=== PATIENT | female | born 1945 | race Caucasian/White ===

== ENCOUNTER 2018-04-24 15:24 | Emergency (ER) | payer MEDICARE, OTHER ==
[2018-04-24] MEDS ORDERED: Nitrostat 0.4 MG (ED) SL ONE ×2 (15:30→15:43)
[2018-04-24] MEDS ORDERED: BABY ASPIRIN 81 MG CHEW PO ONE (15:30)
--- NOTE | 2018-04-24 15:30 | ERPHSYRPT ---
- History of Present Illness Time Seen by Provider: 04/24/18 15:30 Historian: patient Exam Limitations: no limitations Physician History: 72 y/o white female presents with cp. cp began today while pt ironing. no known cardiac hx. pt states pain is sharp and is located central substernal and radiates into back. pt has had some coughing issues over last 2 to 3 days and coughing worse today. pt denies abd pain and denies sig soa to me. Timing/Duration: today Activities at Onset: none Quality: sharpness Location: substernal, central Chest Pain Radiation: back Severity of Pain-Max: mild Severity of Pain-Current: mild Modifying Factors: Improves With: coughing Associated Symptoms: cough, No nausea, No vomiting, No palpitations, No heartburn, No abdominal pain, No shortness of breath, No hurts to breathe, No fever, No syncope, No dizziness Prior Chest Pain/Cardiac Workup: no prior chest pain, no prior cardiac workup, non-cardiac Nitro Today/Relief: no nitro taken today Aspirin Treatment Today: 81 mg x 1, provided at home (pt takes a baby asa daily. ) Allergies/Adverse Reactions: Sulfa (Sulfonamide Antibiotics) Adverse Reaction (Verified 04/24/18 15:38) Home Medications: Anastrozole [Arimidex] 1 mg PO DAILY 01/11/13 [History] Aspirin 81 gm Chew [Baby Aspirin 81 mg Chew] 81 mg PO DAILY 06/22/14 [ History] Hx Influenza Vaccination/Date Given: Yes (2013) Hx Pneumococcal Vaccination/Date Given: Yes (2011) - Review of Systems Constitutional: No Symptoms, No Fever Eyes: No Symptoms, No Eye Pain Ears, Nose, & Throat: No Symptoms, No Ear Pain Respiratory: Cough, No Dyspnea, No Dyspnea on Exertion (MEYER), No Stridor, No Wheezing Cardiac: Chest Pain, No Palpitations, No Syncope Abdominal/Gastrointestinal: No Symptoms, No Abdominal Pain, No Nausea, No Vomiting, No Diarrhea Genitourinary Symptoms: No Symptoms, No Dysuria, No Frequency, No Hematuria Musculoskeletal: No Symptoms Skin: No Symptoms Neurological: No Symptoms, No Dizziness Psychological: No Symptoms Endocrine: No Symptoms Hematologic/Lymphatic: No Symptoms Immunological/Allergic: No Symptoms All Other Systems: Reviewed and Negative - Past Medical History Pertinent Past Medical History: Yes Neurological History: No Pertinent History Cardiac History: No Pertinent History Respiratory History: No Pertinent History Endocrine Medical History: No Pertinent History Musculoskeletal History: No Pertinent History GI Medical History: No Pertinent History History: No Pertinent History Psycho-Social History: No Pertinent History Female Reproductive Disorders: Breast Cancer - Past Surgical History Past Surgical History: Yes Neuro Surgical History: No Pertinent History Cardiac: No Pertinent History Respiratory: No Pertinent History Gastrointestinal: No Pertinent History, Other Genitourinary: No Pertinent History Musculoskeletal: Orthopedic Surgery Female Surgical History: Section, Hysterectomy, Lumpectomy Other Surgical History: colonoscopy 5yrs ago, left breast lumpectomy and nodes excision 2011 - Social History Smoking Status: Never smoker Exposure to second hand smoke: No Drug Use: none Patient Lives Alone: No - Nursing Vital Signs Nursing Vital Signs: Initial Vital Signs Temperature 97.2 F 04/24/18 15:29 Pulse Rate 110 H 04/24/18 15:29 Respiratory Rate 16 04/24/18 15:29 Blood Pressure 180/90 04/24/18 15:29 O2 Sat by Pulse Oximetry 97 04/24/18 15:29 Pain Scale Pain Intensity 3 - Physical Exam General Appearance: mild distress, alert, anxiety Ears, Nose, Throat Exam: normal ENT inspection Neck Exam: normal inspection, non-tender, supple, full range of motion Respiratory Exam: normal breath sounds, chest tenderness, lungs clear, respiratory distress, airway intact Cardiovascular Exam: regular rate/rhythm, normal heart sounds, normal peripheral pulses Gastrointestinal/Abdomen Exam: soft, normal bowel sounds, No tenderness, No guarding, No rebound Pelvic Exam: not done Rectal Exam: not done Back Exam: normal inspection, normal range of motion, No CVA tenderness, No vertebral tenderness Extremity Exam: normal inspection, normal range of motion, pelvis stable Neurologic Exam: alert, oriented x 3, cooperative, stallion manager II-XII nml as tested, normal mood/affect Skin Exam: normal color, warm, dry Lymphatic Exam: No adenopathy SpO2 Interpretation: normal Oxygen Delivery: Room Air - Course Nursing assessment & vital signs reviewed: Yes EKG Interpreted by Me: RATE (110), Sinus Tach, NORMAL AXIS, NORMAL INTERVALS, NORMAL QRS Ordered Tests: Active Orders 24 hr Category Date Time Status Machine Operators STAT Care 04/24/18 15:31 Active EKG-ER Only STAT Care 04/24/18 15:30 Active IV Insertion STAT Care 04/24/18 15:30 Active Pulse Oximetry (ED) STAT Care 04/24/18 15:30 Active CHEST 1 VIEW (PORTABLE) Stat Exams 04/24/18 15:31 Completed CBC W DIFF Stat Lab 04/24/18 15:30 Completed CMP Stat Lab 04/24/18 15:30 Completed D-DIMER QUANTITATION Stat Lab 04/24/18 15:30 Completed Manual Differential NC Stat Lab 04/24/18 15:30 Completed NT PRO BNP Stat Lab 04/24/18 15:30 Completed PROTIME WITH INR Stat Lab 04/24/18 15:30 Completed TROPONIN Q3H Lab 04/24/18 15:30 Completed TROPONIN Q3H Lab 04/24/18 18:45 Ordered TROPONIN Q3H Lab 04/24/18 21:45 Ordered TROPONIN Q3H Lab 04/25/18 00:45 Ordered TROPONIN Q3H Lab 04/25/18 03:45 Ordered Medication Summary Discontinued Medications Generic Name Dose Route Start Last Admin Trade Name Freq PRN Reason Stop Dose Admin Aspirin 324 mg 04/24/18 15:30 04/24/18 15:44 Baby Aspirin 81 Mg Chew PO 04/24/18 15:31 243 mg STAT ONE Administration Aspirin Confirm 04/24/18 15:43 Baby Aspirin 81 Mg Chew Administered 04/24/18 15:44 Dose 324 mg .ROUTE .STK-MED ONE Nitroglycerin 0.4 mg 04/24/18 15:30 04/24/18 15:46 Nitrostat 0.4 Mg (Ed) SL 04/24/18 15:31 0.4 mg STAT ONE Administration Nitroglycerin Confirm 04/24/18 15:43 Nitrostat 0.4 Mg (Ed) Administered 04/24/18 15:44 Dose 0.4 mg SL .STK-MED ONE Ondansetron HCl 4 mg 04/24/18 15:32 04/24/18 15:46 Zofran 4 Mg/2 Ml Vial IV 04/24/18 15:33 4 mg STAT ONE Administration Ondansetron HCl Confirm 04/24/18 15:42 Zofran 4 Mg/2 Ml Vial Administered 04/24/18 15:43 Dose 4 mg .ROUTE .STK-MED ONE Lab/Rad Data: Laboratory Result Diagrams 04/24/18 15:30 04/24/18 15:30 Laboratory Results 04/24/18 04/24/18 04/24/18 Range/Units 15:30 15:30 15:30 WBC (4.0-10.5) K/mm3 RBC (4.1-5.4) M/mm3 Hgb (12.0-16.0) gm/dl Hct (35-47) % MCV (78-100) fl MCH (26-32) pg MCHC (32-36) g/dl RDW (11.5-14.0) % Plt Count (150-450) K/mm3 MPV (6-9.5) fl Absolute Granulocytes (1.4-6.9) PT 10.2 (9.95-12.35) SECONDS INR 0.88 (0.8-3.0) D-Dimer < 215 L (215-500) ng/mL Sodium 136 L (137-145) mmol/L Potassium 3.7 (3.5-5.1) mmol/L Chloride 100 (98-107) mmol/L Carbon Dioxide 25 (22-30) mmol/L Anion Gap 15.3 H (5-15) MEQ/L BUN 13 (7-17) mg/dL Creatinine 0.51 L (0.52-1.04) mg/dL Estimated GFR > 60.0 ML/MIN Glucose 141 H (74-106) mg/dL Calcium 9.7 (8.4-10.2) mg/dL Total Bilirubin 0.70 (0.2-1.3) mg/dL AST 24 (14-36) U/L ALT 14 (0-35) U/L Alkaline Phosphatase 39 (38-126) U/L Troponin I < 0.012 (0.000-0.034) ng/mL NT-Pro-B Natriuret Pep 370 (0-900) pg/mL Serum Total Protein 7.5 (6.3-8.2) g/dL Albumin 4.9 (3.5-5.0) g/dL 04/24/18 Range/Units 15:30 WBC 7.3 (4.0-10.5) K/mm3 RBC 4.13 (4.1-5.4) M/mm3 Hgb 13.6 (12.0-16.0) gm/dl Hct 40.7 (35-47) % MCV 98.5 (78-100) fl MCH 32.9 H (26-32) pg MCHC 33.4 (32-36) g/dl RDW 13.4 (11.5-14.0) % Plt Count 150 (150-450) K/mm3 MPV 9.5 (6-9.5) fl Absolute Granulocytes 6.68 (1.4-6.9) PT (9.95-12.35) SECONDS INR (0.8-3.0) D-Dimer (215-500) ng/mL Sodium (137-145) mmol/L Potassium (3.5-5.1) mmol/L Chloride (98-107) mmol/L Carbon Dioxide (22-30) mmol/L Anion Gap (5-15) MEQ/L BUN (7-17) mg/dL Creatinine (0.52-1.04) mg/dL Estimated GFR ML/MIN Glucose (74-106) mg/dL Calcium (8.4-10.2) mg/dL Total Bilirubin (0.2-1.3) mg/dL AST (14-36) U/L ALT (0-35) U/L Alkaline Phosphatase (38-126) U/L Troponin I (0.000-0.034) ng/mL NT-Pro-B Natriuret Pep (0-900) pg/mL Serum Total Protein (6.3-8.2) g/dL Albumin (3.5-5.0) g/dL - Progress Progress: re-examined Air Movement: good Progress Note: 04/24/18 17:39 pt said her cp is only when she moves. no soa. Blood Culture(s) Obtained: No Antibiotics given: No Counseled pt/family regarding: lab results, diagnosis, need for follow-up, rad results - Departure Time of Disposition: 17:41 Departure Disposition: Home Clinical Impression: Chest pain, Musculoskeletal pain Condition: Stable Critical Care Time: No Referrals: CLAY MAES [Primary Care Provider] - Additional Instructions: follow up with primary doctor for further management. Prescriptions: Cyclobenzaprine HCl [Flexeril] 10 mg PO TID PRN #12 tablet PRN Reason: Muscle Spasms Prednisone 10 mg [Deltasone 10 mg] 10 mg PO TID #12 tablet
[2018-04-24] MEDS ORDERED: Zofran 4 MG/2 ML VIAL IV ONE (15:32)
[2018-04-24] MEDS ORDERED: Zofran 4 MG/2 ML VIAL ONE (15:42)
[2018-04-24] MEDS ORDERED: BABY ASPIRIN 81 MG CHEW ONE (15:43)
--- NOTE | 2018-04-24 15:58 | XRAY ---
Exam: AP portable chest film from 04/24/2018. Comparison: Two-view chest from 04/05/2017. Indication: Chest pain, left arm pain, sweating, shortness of breath. Findings: The transverse heart size appears normal. Some atherosclerotic mass or calcification is seen within the aortic knob. The gianluca and mediastinal structures appear unremarkable. The lungs are adequately inflated. No air space infiltrates, vascular congestion, pneumothorax, or pleural fluid is seen. No acute osseous process is seen. Multiple EKG leads are seen in place. Impression: 1. No acute cardiopulmonary disease is seen.
[2018-04-24 16:01] LABS: Granulocyte Absolute (ANC) 6.68 (1.4-6.9); Hematocrit 40.7 % (35-47); Hemoglobin 13.6 gm/dl (12.0-16.0); Mean Cell Volume 98.5 fl (78-100); Mean Corpuscular Hemoglobin 32.9 pg (26-32); Mean Corpuscular Hgb Concent. 33.4 g/dl (32-36); Mean Platelet Volume 9.5 fl (6-9.5); Platelet Count 150 K/mm3 (150-450); Red Blood Count 4.13 M/mm3 (4.1-5.4); Red Cell Distribution Width 13.4 % (11.5-14.0); White Blood Count 7.3 K/mm3 (4.0-10.5)
[2018-04-24 16:09] LABS: INR 0.88 (0.8-3.0)
[2018-04-24 16:16] LABS: D-DIMER QUANTITATION < 215 ng/mL (215-500)
[2018-04-24 16:23] LABS: ALBUMIN 4.9 g/dL (3.5-5.0); ALKALINE PHOSPHATASE 39 U/L (38-126); ANION GAP 15.3 MEQ/L (5-15); BLOOD UREA NITROGEN 13 mg/dL (7-17); CHLORIDE 100 mmol/L (98-107); Calcium 9.7 mg/dL (8.4-10.2); Carbon Dioxide 25 mmol/L (22-30); Creatinine 1 0.51 mg/dL (0.52-1.04); Glucose 141 mg/dL (74-106); NT PRO BNP 370 pg/mL (0-900); Potassium 3.7 mmol/L (3.5-5.1); SGOT/AST 24 U/L (14-36); SGPT/ALT 14 U/L (0-35); SODIUM 136 mmol/L (137-145); Total Protein 7.5 g/dL (6.3-8.2)
[2018-04-24] MEDS ORDERED: NORCO 5/325 MG PO ONE (17:53)
[2018-04-24] MEDS ORDERED: NORCO 5/325 MG ONE (18:08)
[2018-04-24 18:11] VITALS: BP 153/88; PULSE 114; O2SAT 97
[2018-04-24 22:45] LABS: BAND 1 % (0.0-2.0); Lymphocytes 5 % (24-44); Monocyte 3 % (0.0-12.0); Neutrophils 91 % (36.0-66.0); Total Cells Counted 100
[2018-04-24 22:46] LABS: Platelet Estimate NORMAL (NORMAL)
== END 2018-04-24 18:52 | disposition home or self-care (01) ==
LOC: ED 15:24
DX: R07.9 Chest pain, unspecified (principal); M79.1 Myalgia; Z85.3 Personal history of malignant neoplasm of breast; F41.9 Anxiety disorder, unspecified; Z79.899 Other long term (current) drug therapy
CPT/HCPCS: 36000; 36415; 71045; 80053; 83880; 84484; 85025; 85379; 85610; 93005; 93041; 96374; 99284; J2405; A9270-GY

== ENCOUNTER 2019-11-18 10:02 | Emergency (ER) | payer MEDICARE, OTHER ==
--- NOTE | 2019-11-18 10:08 | ERPHSYRPT ---
- History of Present Illness Time Seen by Provider: 11/18/19 10:04 Source: patient Exam Limitations: no limitations Physician History: The patient is a 74-year-old female who presents with a chief complaint of a cough in addition to what she believes to be pinkeye involving the left eye. The patient reportedly has experienced a dry cough for the past 2 weeks. This is why she was traveling in [place] in addition to [place]. She reportedly was around her who was sick with pneumonia and admitted in [place] but there are no known Cobin 19 exposures and an to her knowledge her has not been diagnosed with covert 19. The patient is not a healthcare worker nor does she reside in an [facility] or appear to be critically ill at this time. She reportedly got off the plane last night and noticed that her left eye was starting to itch and become red while traveling via air. She is also noticed some purulent drainage coming from the left eye that started this morning. She denies deep boring pain involving the left eye, fever, chills, productive cough, shortness of breath, chest pain. She does have a history of breast cancer but reportedly is in remission and has been in remission for the past 4 to 5 years. 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 Associated Symptoms: cough, No nausea, No vomiting, No abdominal pain, No shortness of breath, No chills, No chest pain, No fever, No headaches, No rash Allergies/Adverse Reactions: Sulfa (Sulfonamide Antibiotics) Adverse Reaction (Verified 02/19/19 09:36) Home Medications: Aspirin 81 gm Chew [Baby Aspirin 81 mg Chew] 81 mg PO DAILY 06/22/14 [ History] Multivitamin [Multivitamins] 1 each PO DAILY 02/19/19 [History] lisinopriL [Lisinopril] 2.5 mg PO BID 11/18/19 [History] Hx Influenza Vaccination/Date Given: Yes (2013) Hx Pneumococcal Vaccination/Date Given: Yes (2011) - Review of Systems Constitutional: No Fever, No Chills Eyes: Eye Redness, Itchy Ears, Nose, & Throat: Nose Congestion, No Ear Pain, No Hoarse, No Painful Swallowing Respiratory: Cough Cardiac: No Chest Pain, No Edema, No Palpitations, No Syncope Abdominal/Gastrointestinal: No Symptoms, No Abdominal Pain, No Nausea, No Vomiting Genitourinary Symptoms: No No Symptoms Musculoskeletal: No No Symptoms Skin: No No Symptoms Neurological: No No Symptoms Psychological: No No Symptoms Endocrine: No No Symptoms Hematologic/Lymphatic: No No Symptoms Immunological/Allergic: No No Symptoms All Other Systems: Reviewed and Negative - Past Medical History Pertinent Past Medical History: Yes Neurological History: No Pertinent History ENT History: No Pertinent History Cardiac History: No Pertinent History Respiratory History: No Pertinent History Endocrine Medical History: No Pertinent History Musculoskeletal History: No Pertinent History, Osteoporosis GI Medical History: No Pertinent History History: No Pertinent History Psycho-Social History: No Pertinent History Female Reproductive Disorders: Breast Cancer - Past Surgical History Past Surgical History: Yes Neuro Surgical History: No Pertinent History Cardiac: No Pertinent History Respiratory: No Pertinent History Gastrointestinal: No Pertinent History, Other Genitourinary: No Pertinent History Musculoskeletal: Orthopedic Surgery Female Surgical History: Section, Hysterectomy, Lumpectomy Other Surgical History: colonoscopy 5yrs ago, left breast lumpectomy and nodes excision 2011. Ex/bx melanoma of nose - Social History Smoking Status: Never smoker Exposure to second hand smoke: No Drug Use: none Patient Lives Alone: No - Nursing Vital Signs Nursing Vital Signs: Initial Vital Signs Temperature 99.1 F 11/18/19 10:02 Pulse Rate 102 H 11/18/19 10:02 Respiratory Rate 22 11/18/19 10:02 Blood Pressure 178/94 11/18/19 10:02 O2 Sat by Pulse Oximetry 98 11/18/19 10:02 Pain Scale Pain Intensity 0 - Physical Exam General Appearance: no apparent distress Eye Exam: PERRL/EOMI, other (Left eye/specifically the conjunctive appear to be erythematous with some active purulent drainage consistent with what appears to be conjunctivitis. No proptosis, photophobia, changes in visual acuity, or signs of periorbital edema. There is no eye pain with ocular motion), No scleral icterus Ears, Nose, Throat Exam: normal ENT inspection, TMs normal, pharynx normal, moist mucous membranes, No TM abnormal (R), No TM abnormal (L), No pharyngeal erythema, No tonsillar exudate Neck Exam: normal inspection, non-tender, No supple Respiratory Exam: normal breath sounds, lungs clear, airway intact, No chest tenderness, No respiratory distress, No diminished breath sounds, No pleural rub Cardiovascular Exam: regular rate/rhythm, normal heart sounds, normal peripheral pulses, capillary refill <2 sec, No murmur, No friction rub, No gallop, No tachycardia, No edema Gastrointestinal/Abdomen Exam: soft Pelvic Exam: not done Rectal Exam: deferred Back Exam: normal inspection Extremity Exam: normal inspection Neurologic Exam: alert, oriented x 3, cooperative Skin Exam: normal color, warm, dry, No rash, No petechiae SpO2 Interpretation: normal - Course Nursing assessment & vital signs reviewed: Yes - Radiology Exams Chest X-ray Interpretation: Reviewed by me, Other (Radiology is reporting continued on acute hyperinflated chest.) Ordered Tests: Active Orders 24 hr Category Date Time Status PO Fluid Challenge STAT Care 11/18/19 10:18 Active CHEST 2 VIEWS (PA AND LAT) Stat Exams 11/18/19 10:17 Completed - Progress Progress: unchanged Progress Note: 11/18/19 16:12 Nontoxic in appearance. The patient is afebrile. Chest x-ray is ordered to evaluate for evidence of pneumonia or pleural effusion and was negative for such. Given the patient's duration of symptoms I do not feel the need to test for influenza at this time given it would not change my management since she was symptomatic for nearly 2 weeks and I would not prescribe antivirals given that her symptoms are well past the 48-hour window to do so. The patient also screened out for testing for COVID-19 the [facility] guidelines as of November 13, 2019. The patient appears to be clinically suffering from conjunctivitis affecting the left eye and had no evidence to suggest orbital cellulitis or periorbital cellulitis at this time. I suspect this may be viral however it is difficult to determine whether or not it is truly viral versus bacterial and I will go ahead and empirically cover with bacitracin ophthalmic ointment for treatment. I also informed the patient that her conjunctivitis may spread to her right eye and she then inform me that she is starting to feel some pruritus affecting the right eye but has no visible changes to the eyelid itself or conjunctive at this time there is strengthening my suspicion that her etiology is viral. In the meantime, she will be prescribed medications for symptomatic relief and instructed to follow-up with her primary care provider as needed. She was instructed to return to the emergency department if her symptoms became worse. She agreed with and verbally understood the discharge plan. Counseled pt/family regarding: lab results, diagnosis, need for follow-up, rad results - Departure Departure Disposition: Home Clinical Impression: Viral upper respiratory illness, Conjunctivitis Condition: Stable Critical Care Time: No Referrals: CLAY AMES [Primary Care Provider] - Instructions: Viral Upper Respiratory Infection, Adult (DC), Conjunctivitis ( Pinkeye), Cough, Adult (DC) Additional Instructions: Please take Tylenol/acetaminophen and/or ibuprofen as needed for any fever or pain, specifically or sore throat. Please continue to drink cool liquids and perform salt water gargles as needed for comfort. You can purchase acetaminophen/Tylenol as well as ibuprofen [id number]. Please take this medication as instructed on the bottle. Prescriptions: Benzonatate [Tessalon Perle] 100 mg PO [id number] PRN #30 capsule PRN Reason: Cough Bacitracin Opht 3.5 gm [Bacitracin EYE OINT] 3.5 gm OP TID 5 Days #1 tube
--- NOTE | 2019-11-18 11:00 | XRAY ---
Indication: Fever and cough. Comparison: April 24, 2018. AP/lateral chest remains hyperinflated and clear. Heart is not enlarged. Aorta remains arteriosclerotic. Bony thorax intact. No new/acute findings. Impression: Continued nonacute hyperinflated chest.
[2019-11-18 11:18] VITALS: BP 152/79; PULSE 96; O2SAT 96
== END 2019-11-18 11:42 | disposition home or self-care (01) ==
LOC: ED 10:02
DX: J06.9 Acute upper respiratory infection, unspecified (principal); H10.9 Unspecified conjunctivitis; M81.0 Age-related osteoporosis without current pathological fracture; Z85.3 Personal history of malignant neoplasm of breast
CPT/HCPCS: 71046; 99283

== ENCOUNTER 2019-12-29 20:26 | Observation (INO) | payer MEDICARE, OTHER ==
--- NOTE | 2019-12-29 20:46 | ERPHSYRPT ---
- History of Present Illness Time Seen by Provider: 12/29/19 20:55 Source: family, EMS Exam Limitations: no limitations Physician History: Patient is a 74yo F who presents to ED for evaluation of unresponsiveness. She was at home doing yardwork with her . She went into her home and sat down. returned minutes later and found patient unresponsive. called 911. Patient arrived unresponsive. GCS 9. Within minutes she regained consciousness. Patient denies pain. She complains of generalized weakness. No falls. NO trauma. No fevers. Timing/Duration: today Severity: moderate Character of Deficits: altered sensation Baseline/Normal Cognition: alert oriented x 3 Current Cognition: poor alertness Baseline Gait: walks w/o assistance Associated Symptoms: loss of consciousness, weakness, No fever, No nausea, No vomiting, No slurred speech Allergies/Adverse Reactions: Sulfa (Sulfonamide Antibiotics) Adverse Reaction (Verified 12/29/19 21:06) Home Medications: Aspirin 81 gm Chew [Baby Aspirin 81 mg Chew] 81 mg PO DAILY 06/22/14 [ History] lisinopriL [Lisinopril] 2.5 mg PO BID 11/18/19 [History] Hx Tetanus, Diphtheria Vaccination/Date Given: Yes Hx Influenza Vaccination/Date Given: Yes (2013) Hx Pneumococcal Vaccination/Date Given: Yes (2011) - Review of Systems Constitutional: No Symptoms, No Fever, No Chills Eyes: No Symptoms Ears, Nose, & Throat: No Symptoms Respiratory: No Symptoms, No Cough, No Dyspnea Cardiac: No Symptoms, No Chest Pain, No Edema, No Syncope Abdominal/Gastrointestinal: No Symptoms, No Abdominal Pain, No Nausea, No Vomiting, No Diarrhea Genitourinary Symptoms: No Symptoms, No Dysuria Musculoskeletal: No Symptoms, No Back Pain, No Neck Pain Skin: No Symptoms, No Rash Neurological: No Symptoms, No Dizziness, No Focal Weakness, No Sensory Changes Psychological: No Symptoms Endocrine: No Symptoms All Other Systems: Reviewed and Negative - Past Medical History Pertinent Past Medical History: Yes Neurological History: No Pertinent History ENT History: No Pertinent History Cardiac History: No Pertinent History Respiratory History: No Pertinent History Endocrine Medical History: No Pertinent History Musculoskeletal History: No Pertinent History, Osteoporosis GI Medical History: No Pertinent History History: No Pertinent History Psycho-Social History: No Pertinent History Female Reproductive Disorders: Breast Cancer - Past Surgical History Past Surgical History: Yes Neuro Surgical History: No Pertinent History Cardiac: No Pertinent History Respiratory: No Pertinent History Gastrointestinal: No Pertinent History, Other Genitourinary: No Pertinent History Musculoskeletal: Orthopedic Surgery Female Surgical History: Section, Hysterectomy, Lumpectomy Other Surgical History: colonoscopy 5yrs ago, left breast lumpectomy and nodes excision 2011. Ex/bx melanoma of nose - Social History Smoking Status: Never smoker Exposure to second hand smoke: No Drug Use: none Patient Lives Alone: No - Nursing Vital Signs Nursing Vital Signs: Initial Vital Signs Pulse Rate 81 12/29/19 20:50 Respiratory Rate 21 12/29/19 20:50 Blood Pressure 142/79 12/29/19 20:50 O2 Sat by Pulse Oximetry 99 12/29/19 20:50 Pain Scale Pain Intensity 0 - [place] Coma Scale Best Eye Response ([place]): (4) open spontaneously Best Verbal Response ([place]): (4) confused conversation Best Motor Response ([place]): (1) no motor response [place] Total: 9 - Physical Exam General Appearance: no apparent distress, alert Eye Exam: right eye: normal inspection (Left eye shows conjunctitivis. ), bilateral eye: PERRL, EOMI Ears, Nose, Throat Exam: normal ENT inspection, moist mucous membranes Neck Exam: normal inspection, non-tender, supple Respiratory: normal breath sounds, lungs clear, airway intact, No respiratory distress Cardiovascular: regular rate/rhythm, No edema Gastrointestinal: soft, No tenderness, No distention Back Exam: normal inspection Extremity Exam: normal inspection, No pedal edema Peripheral Pulses: femoral (R): 2+, femoral (L): 2+, dorsalis-pedis (R): 1+, dorsalis-pedis (L): 1+ Mental Status: alert, oriented x 3 mental health professional Exam: normal hearing, normal speech, tongue midline, No abnormal eye position, No abnormal gag reflex, No facial droop, No facial weakness Coordination/Gait: normal finger to nose, normal gait Motor/Sensory: no motor deficit, no sensory deficit Skin Exam: normal color, warm, dry, No rash SpO2 Interpretation: normal SpO2: 98 O2 Delivery: Room Air - Course Nursing assessment & vital signs reviewed: Yes EKG Interpreted by Me: RATE, Sinus Rhythm, NORMAL AXIS, NORMAL INTERVALS - Radiology Exams Chest X-ray Interpretation: Interpreted by me, Teleradiologist Report - CT Exams Head CT Interpretation: Tele-radiologist Report (atrophy, mild degenerative microischemia and 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 no acute findings) Ordered Tests: Active Orders 24 hr Category Date Time Status Interior Specialist STAT Care 12/29/19 20:31 Active EKG-ER Only STAT Care 12/29/19 20:30 Active [place] [Catheter-Dinosaur [place]] STAT Care 12/29/19 21:04 Active IV Insertion STAT Care 12/29/19 20:31 Active IV Insertion-2nd Peripheral STAT Care 12/29/19 20:54 Active Isolation, Initiate & Maintain Q12H Care 12/29/19 21:06 Active NPO (ED) STAT Care 12/29/19 20:31 Active Oxygen-ED Only Nasal Cannula 2 lpm Care 12/29/19 21:11 Active Pulse Oximetry (ED) STAT Care 12/29/19 20:30 Active CHEST 1 VIEW (PORTABLE) Stat Exams 12/29/19 20:31 Taken HEAD WITHOUT CONTRAST [CT] Stat Exams 12/29/19 20:29 Taken CBC W DIFF Stat Lab 12/29/19 20:45 Completed CMP Stat Lab 12/29/19 20:45 Completed TROPONIN Q3H Lab 12/29/19 20:45 Completed TROPONIN Q3H Lab 12/29/19 23:45 Ordered TROPONIN Q3H Lab 12/30/19 02:45 Ordered TROPONIN Q3H Lab 12/30/19 05:45 Ordered TROPONIN Q3H Lab 12/30/19 08:45 Ordered UA W/RFX UR CULTURE Stat Lab 12/29/19 20:45 Completed Urine Triage Profile Stat Lab 12/29/19 20:45 Completed Transfer Order Routine Transfer 12/29/19 Ordered Medication Summary Discontinued Medications Generic Name Dose Route Start Last Admin Trade Name Freq PRN Reason Stop Dose Admin Erythromycin 3.5 gm 12/29/19 22:02 12/29/19 22:07 Erythromycin 3.5 Gm Ophth. OP 12/29/19 22:03 3.5 gm STAT ONE Administration Erythromycin Confirm 12/29/19 22:06 Erythromycin 1 Gm Administered 12/29/19 22:07 Dose 1 gm .ROUTE .STK-MED ONE Lab/Rad Data: Laboratory Result Diagrams 12/29/19 20:45 12/29/19 20:45 Laboratory Results 12/29/19 12/29/19 12/29/19 Range/Units 20:45 20:45 20:45 WBC (4.0-10.5) K/mm3 RBC (4.1-5.4) M/mm3 Hgb (12.0-16.0) gm/dl Hct (35-47) % MCV (78-100) fl MCH (26-32) pg MCHC (32-36) g/dl RDW (11.5-14.0) % Plt Count (150-450) K/mm3 MPV (7.5-11.0) fl Gran % (36.0-66.0) % Eos # (Auto) (0-0.5) Absolute Lymphs (auto) (1.0-4.6) Absolute Monos (auto) (0.0-1.3) Lymphocytes % (24.0-44.0) % Monocytes % (0.0-12.0) % Eosinophils % (0.00-5.0) % Basophils % (0.0-0.4) % Absolute Granulocytes (1.4-6.9) Basophils # (0-0.4) Sodium (137-145) mmol/L Potassium (3.5-5.1) mmol/L Chloride (98-107) mmol/L Carbon Dioxide (22-30) mmol/L Anion Gap (5-15) MEQ/L BUN (7-17) mg/dL Creatinine (0.52-1.04) mg/dL Estimated GFR ML/MIN Glucose (74-106) mg/dL Calcium (8.4-10.2) mg/dL Total Bilirubin (0.2-1.3) mg/dL AST (14-36) U/L ALT (0-35) U/L Alkaline Phosphatase (38-126) U/L Troponin I < 0.012 (0.000-0.034) ng/mL Serum Total Protein (6.3-8.2) g/dL Albumin (3.5-5.0) g/dL Urine Color YELLOW (YELLOW) Urine Appearance CLEAR (CLEAR) Urine pH 6.0 (5-6) Ur Specific [place] 1.010 (1.005-1.025) Urine Protein NEGATIVE (Negative) Urine Ketones TRACE (NEGATIVE) Urine Blood SMALL (0-5) [place] Urine Nitrite NEGATIVE (NEGATIVE) Urine Bilirubin NEGATIVE (NEGATIVE) Urine Urobilinogen NEGATIVE (0-1) mg/dL Ur Leukocyte Esterase NEGATIVE (NEGATIVE) Urine WBC (Auto) NONE (0-5) /HPF Urine RBC (Auto) 3-5 (0-2) /HPF U Hyaline Cast (Auto) 6-10 (0-2) /LPF U Epithel Cells (Auto) NONE (FEW) /HPF Urine Bacteria (Auto) NONE (NEGATIVE) /HPF Urine Mucus (Auto) SLIGHT (NEGATIVE) /HPF Urine Culture Reflexed NO (NO) Urine Glucose NEGATIVE (NEGATIVE) mg/dL Urine Opiates Level NEGATIVE (NEGATIVE) Ur Methadone NEGATIVE (NEGATIVE) Urine Barbiturates NEGATIVE (NEGATIVE) Ur Phencyclidine (PCP) NEGATIVE (NEGATIVE) Urine Amphetamine NEGATIVE (NEGATIVE) U Benzodiazepine Level NEGATIVE (NEGATIVE) Urine Cocaine NEGATIVE (NEGATIVE) Urine Marijuana (THC) NEGATIVE (NEGATIVE) 12/29/19 12/29/19 Range/Units 20:45 20:45 WBC 5.4 (4.0-10.5) K/mm3 RBC 3.77 L (4.1-5.4) M/mm3 Hgb 12.1 (12.0-16.0) gm/dl Hct 37.0 (35-47) % MCV 98.1 (78-100) fl MCH 32.1 H (26-32) pg MCHC 32.7 (32-36) g/dl RDW 13.6 (11.5-14.0) % Plt Count 223 (150-450) K/mm3 MPV 8.8 (7.5-11.0) fl Gran % 60.7 (36.0-66.0) % Eos # (Auto) 0.12 (0-0.5) Absolute Lymphs (auto) 1.52 (1.0-4.6) Absolute Monos (auto) 0.48 (0.0-1.3) Lymphocytes % 27.9 (24.0-44.0) % Monocytes % 8.8 (0.0-12.0) % Eosinophils % 2.2 (0.00-5.0) % Basophils % 0.4 (0.0-0.4) % Absolute Granulocytes 3.30 (1.4-6.9) Basophils # 0.02 (0-0.4) Sodium 136 L (137-145) mmol/L Potassium 3.6 (3.5-5.1) mmol/L Chloride 100 (98-107) mmol/L Carbon Dioxide 22 (22-30) mmol/L Anion Gap 17.5 H (5-15) MEQ/L BUN 12 (7-17) mg/dL Creatinine 0.91 (0.52-1.04) mg/dL Estimated GFR > 60.0 ML/MIN Glucose 91 (74-106) mg/dL Calcium 9.1 (8.4-10.2) mg/dL Total Bilirubin 0.50 (0.2-1.3) mg/dL AST 29 (14-36) U/L ALT 13 (0-35) U/L Alkaline Phosphatase 42 (38-126) U/L Troponin I (0.000-0.034) ng/mL Serum Total Protein 6.9 (6.3-8.2) g/dL Albumin 4.2 (3.5-5.0) g/dL Urine Color (YELLOW) Urine Appearance (CLEAR) Urine pH (5-6) Ur Specific [place] (1.005-1.025) Urine Protein (Negative) Urine Ketones (NEGATIVE) Urine Blood (0-5) [place] Urine Nitrite (NEGATIVE) Urine Bilirubin (NEGATIVE) Urine Urobilinogen (0-1) mg/dL Ur Leukocyte Esterase (NEGATIVE) Urine WBC (Auto) (0-5) /HPF Urine RBC (Auto) (0-2) /HPF U Hyaline Cast (Auto) (0-2) /LPF U Epithel Cells (Auto) (FEW) /HPF Urine Bacteria (Auto) (NEGATIVE) /HPF Urine Mucus (Auto) (NEGATIVE) /HPF Urine Culture Reflexed (NO) Urine Glucose (NEGATIVE) mg/dL Urine Opiates Level (NEGATIVE) Ur Methadone (NEGATIVE) Urine Barbiturates (NEGATIVE) Ur Phencyclidine (PCP) (NEGATIVE) Urine Amphetamine (NEGATIVE) U Benzodiazepine Level (NEGATIVE) Urine Cocaine (NEGATIVE) Urine Marijuana (THC) (NEGATIVE) - Progress Progress: improved Progress Note: 12/29/19 21:41 Patient reassessed. She is now A&Ox2. She is answering questions appropriately. NO focal or lateralizing symptoms. No slurred speech. Patient recalls her husbands name, hears of marriage. 12/29/19 22:[address] Albert who accepts consult. Patient is not a candidate for TPA due to rapid resolution of symptoms and normal neuro exam. 12/29/19 22:05 Discussed with .: Conrad Will see patient in: hospital (observation) Counseled pt/family regarding: lab results, diagnosis, need for follow-up, rad results - Departure Departure Disposition: Observation Clinical Impression: TIA (transient ischemic attack), Syncope, High anion gap metabolic acidosis, Conjunctivitis Condition: Stable Critical Care Time: Yes Critical Care Time(excluding separately billable procedures): Critical 30-74 mins Referrals: CLAY ALBERT [Primary Care Provider] -
[2019-12-29 20:53] LABS: BASOPHIL % 0.4 % (0.0-0.4); Basophil (Absolute #) 0.02 (0-0.4); Eosinophil % 2.2 % (0.00-5.0); Eosinophil (Absolute #) 0.12 (0-0.5); Hemoglobin 12.1 gm/dl (12.0-16.0); Lymphocyte (Absolute #) 1.52 (1.0-4.6); Lymphocytes % 27.9 % (24.0-44.0); Mean Cell Volume 98.1 fl (78-100); Mean Corpuscular Hemoglobin 32.1 pg (26-32); Mean Corpuscular Hgb Concent. 32.7 g/dl (32-36); Mean Platelet Volume 8.8 fl (7.5-11.0); Monocyte (Absolute #) 0.48 (0.0-1.3); Monocytes % 8.8 % (0.0-12.0); Neutrophil % 60.7 % (36.0-66.0); Platelet Count 223 K/mm3 (150-450); Red Blood Count 3.77 M/mm3 (4.1-5.4); Red Cell Distribution Width 13.6 % (11.5-14.0); White Blood Count 5.4 K/mm3 (4.0-10.5)
[2019-12-29 21:03] LABS: ALBUMIN 4.2 g/dL (3.5-5.0); ALKALINE PHOSPHATASE 42 U/L (38-126); ANION GAP 17.5 MEQ/L (5-15); BLOOD UREA NITROGEN 12 mg/dL (7-17); CHLORIDE 100 mmol/L (98-107); Calcium 9.1 mg/dL (8.4-10.2); Carbon Dioxide 22 mmol/L (22-30); Creatinine 1 0.91 mg/dL (0.52-1.04); Glucose 91 mg/dL (74-106); Potassium 3.6 mmol/L (3.5-5.1); SGOT/AST 29 U/L (14-36); SGPT/ALT 13 U/L (0-35); SODIUM 136 mmol/L (137-145); Total Protein 6.9 g/dL (6.3-8.2)
[2019-12-29 21:08] LABS: Appearance CLEAR (CLEAR); Bilirubin NEGATIVE (NEGATIVE); Blood SMALL Ery/ul (0-5); Glucose NEGATIVE (NEGATIVE); Ketones TRACE (NEGATIVE); Leukocyte Esterase NEGATIVE (NEGATIVE); Mucus SLIGHT /HPF (NEGATIVE); Nitrite NEGATIVE (NEGATIVE); Protein,Urine Dip NEGATIVE (Negative); Urobilinogen NEGATIVE mg/dL (0-1)
[2019-12-29 21:17] LABS: Amphetamine,Urine NEGATIVE (NEGATIVE); Barbiturate,Urine NEGATIVE (NEGATIVE); Benzodiazepine,Urine NEGATIVE (NEGATIVE); Cocaine,Urine NEGATIVE (NEGATIVE); Methadone,Urine NEGATIVE (NEGATIVE); Opiate,Urine NEGATIVE (NEGATIVE); PCP,Urine NEGATIVE (NEGATIVE); THC,Urine NEGATIVE (NEGATIVE)
[2019-12-29] MEDS ORDERED: Erythromycin 3.5 GM OPHTH. OP ONE (22:02)
[2019-12-29] MEDS ORDERED: Erythromycin 1 GM ONE (22:06)
[2019-12-30 06:48] LABS: Absolute Neutrophil Ct (ANC) 2.29 (1.4-6.9); BASOPHIL % 0.5 % (0.0-0.4); Basophil (Absolute #) 0.02 (0-0.4); Eosinophil % 2.6 % (0.00-5.0); Hematocrit 35.4 % (35-47); Hemoglobin 11.4 gm/dl (12.0-16.0); Lymphocyte (Absolute #) 1.04 (1.0-4.6); Lymphocytes % 27.3 % (24.0-44.0); Mean Cell Volume 97.8 fl (78-100); Mean Corpuscular Hemoglobin 31.5 pg (26-32); Mean Corpuscular Hgb Concent. 32.2 g/dl (32-36); Mean Platelet Volume 9.2 fl (7.5-11.0); Monocyte (Absolute #) 0.36 (0.0-1.3); Monocytes % 9.4 % (0.0-12.0); Neutrophil % 60.2 % (36.0-66.0); Platelet Count 216 K/mm3 (150-450); Red Blood Count 3.62 M/mm3 (4.1-5.4); Red Cell Distribution Width 13.6 % (11.5-14.0); White Blood Count 3.8 K/mm3 (4.0-10.5)
--- NOTE | 2019-12-30 08:46 | XRAY ---
Indication: Acute mental status change. Aspiration. Unresponsive. Comparison: November 18, 2019. Portable chest demonstrates minimal right base subsegmental atelectasis/scarring. Remaining heart and lungs unremarkable. Bony thorax intact.
--- NOTE | 2019-12-30 08:47 | XRAY ---
Indication: Acute mental status change. Unresponsive. Hypertension. Multiple contiguous axial images obtained through the head without contrast. Comparison: None There is diffuse global atrophy within normal limits for patient's age. Mild periventricular degenerative micro-ischemia bilaterally. Left external capsule demonstrates remote lacunar infarct. No acute intracranial hemorrhage, abnormal extra-axial fluid collection, or mass effect. Fourth ventricle is midline without hydrocephalus. Bony calvarium intact. Visualized paranasal sinuses and mastoid air cells are clear. Impression: 1. Normal aging brain including atrophy and degenerative micro-ischemia. 2. Left external capsule remote lacunar infarct. 3. No acute intracranial abnormalities. Comment: Follow-up CT or MRI may yield further information if there remains clinical concern.
--- NOTE | 2019-12-30 08:59 | PCM.SSS ---
History of Present Illness - Chief Complaint Chief Complaint: TIA History of Present Illness: is a 74 year old female pt of mine from [facility] with HTN and osteoporosis, hx of melanoma and breast ca, who was admitted through ER after being found unresponsive at home. She remembers standing in the kitchen feeling nauseated, went to get a trashcan and then doesn't remember anything until she was in the ER. She is feeling well this morning, no complaints. CT head and CXR were nonacute in ER. She came to see me last week c/o dizziness, worse with turning her head and raising up from being bent over. Orthostats were fine. Echocardiogram, carotid dopplers, and Holter monitor x 24h were done; carotid doppler report is nonacute, echo and Holter reports are pending. Her labs have been nonacute; her troponins neg x 4. Urine drug screen and UA neg. I am adding a TSH today as it was last checked in 2019. Will check MRI brain as well. Will send pt home after today's testing as she is feeling well. Will have her f /u with [facility]. - Review of Systems Respiratory: Cough ("just the normal"), Short Of Breath (little bit, she attributes to not exercising as normal) Cardiac: Syncope Abdominal/Gastrointestinal: Nausea, Diarrhea (off and on; chronic) Musculoskeletal: Arthralgias (bilat ankles, since her leg surgery with Dr. Crespo) Neurological: Dizziness Psychological: Depression (situational; her son 4mo ago.) All Other Systems: Reviewed and Negative Medications & Allergies Home Medications: Home Medication List Aspirin 81 gm Chew [Baby Aspirin 81 mg Chew] 81 mg PO DAILY 06/22/14 [ History Confirmed 12/29/19] lisinopriL [Lisinopril] 2.5 mg PO DAILY 11/18/19 [History Confirmed 12/29/19] Allergies/Adverse Reactions: Allergies Allergy/AdvReac Type Severity Reaction Status Date / Time Sulfa (Sulfonamide Allergy Intermediate Swelling Verified 12/29/19 23:19 Antibiotics) of Eyelids - Past Medical History Past Medical History: Yes Neurological History: No Pertinent History ENT History: No Pertinent History Cardiac History: Hypertension Respiratory History: No Pertinent History Endocrine Medical History: No Pertinent History Musculoskelatal History: Osteoporosis GI Medical History: No Pertinent History History: No Pertinent History Pyscho-Social History: No Pertinent History Reproductive Disorders: Breast Cancer Comment: MELANOMA - Female History Hx Last Menstrual Period: postmenapause Are you now?: No - Past Surgical History Past Surgical History: Yes Neuro Surgical History: No Pertinent History Cardiac History: No Pertinent History Respiratory Surgery: No Pertinent History GI Surgical History: Other Genitourinary Surgical Hx: No Pertinent History Musculskeletal Surgical Hx: Orthopedic Surgery Female Surgical History: Section, Hysterectomy, Lumpectomy Other Surgical History: colonoscopy 5yrs ago, left breast lumpectomy and nodes excision 2011. Ex/bx melanoma of nose. TAILBONE REMOVED - Social History Smoking Status: Never smoker Exposure to second hand smoke: No Alcohol: Daily Drug Use: none - Physical Exam Vital Signs: Vital Signs - 24 hr Temp Pulse Resp BP BP Pulse Ox 12/30/19 08:00 14 12/30/19 07:34 98.2 F 93 H 13 137/65 99 12/30/19 07:06 98 12/30/19 04:00 98.4 F 90 16 134/65 100 12/30/19 00:00 98.1 F 88 16 118/62 99 12/29/19 23:00 100 12/29/19 22:48 97.5 F 93 H 14 129/78 100 12/29/19 22:38 97.5 F 93 H 14 129/78 100 12/29/19 22:24 100 12/29/19 22:10 98 12/29/19 22:03 97.0 F 88 16 109/60 99 12/29/19 21:16 96.3 F 12/29/19 21:10 97.0 F 88 16 113/62 99 12/29/19 20:50 81 21 142/79 100 Oxygen-Last 24 hours Oxygen Flowrate (L/min)-RT 2 General Appearance: no apparent distress, alert Neurologic Exam: oriented x 3, cooperative, matrix worker II-XII nml as tested, other ( manager garage 5/5 bilat) Eye Exam: PERRL/EOMI, eyes nml inspection Ears, Nose, Throat Exam: pharynx normal, moist mucous membranes Neck Exam: normal inspection, non-tender, No lymphadenopathy Respiratory Exam: normal breath sounds, lungs clear, No crackles/rales, No rhonchi, No wheezing Cardiovascular Exam: regular rate/rhythm, normal heart sounds, No murmur Gastrointestinal/Abdomen Exam: soft, normal bowel sounds, No tenderness, No distention, No mass, No guarding, No rebound Back Exam: normal inspection, No rash Extremity Exam: normal inspection, No pedal edema, No swelling Skin Exam: normal color, warm, dry, No rash Results - Labs Lab/Micro Results: Lab Results-Last 24 Hours 12/29/19 12/29/19 12/29/19 Range/Units 20:45 20:45 20:45 WBC 5.4 (4.0-10.5) K/mm3 RBC 3.77 L (4.1-5.4) M/mm3 Hgb 12.1 (12.0-16.0) gm/dl Hct 37.0 (35-47) % MCV 98.1 (78-100) fl MCH 32.1 H (26-32) pg MCHC 32.7 (32-36) g/dl RDW 13.6 (11.5-14.0) % Plt Count 223 (150-450) K/mm3 MPV 8.8 (7.5-11.0) fl Gran % 60.7 (36.0-66.0) % Eos # (Auto) 0.12 (0-0.5) Absolute Lymphs (auto) 1.52 (1.0-4.6) Absolute Monos (auto) 0.48 (0.0-1.3) Lymphocytes % 27.9 (24.0-44.0) % Monocytes % 8.8 (0.0-12.0) % Eosinophils % 2.2 (0.00-5.0) % Basophils % 0.4 (0.0-0.4) % Absolute Granulocytes 3.30 (1.4-6.9) Basophils # 0.02 (0-0.4) Sodium 136 L (137-145) mmol/L Potassium 3.6 (3.5-5.1) mmol/L Chloride 100 (98-107) mmol/L Carbon Dioxide 22 (22-30) mmol/L Anion Gap 17.5 H (5-15) MEQ/L BUN 12 (7-17) mg/dL Creatinine 0.91 (0.52-1.04) mg/dL Estimated GFR > 60.0 ML/MIN Glucose 91 (74-106) mg/dL Calcium 9.1 (8.4-10.2) mg/dL Total Bilirubin 0.50 (0.2-1.3) mg/dL AST 29 (14-36) U/L ALT 13 (0-35) U/L Alkaline Phosphatase 42 (38-126) U/L Troponin I < 0.012 (0.000-0.034) ng/mL Serum Total Protein 6.9 (6.3-8.2) g/dL Albumin 4.2 (3.5-5.0) g/dL Urine Color (YELLOW) Urine Appearance (CLEAR) Urine pH (5-6) Ur Specific [place] (1.005-1.025) Urine Protein (Negative) Urine Ketones (NEGATIVE) Urine Blood (0-5) Costa/ul Urine Nitrite (NEGATIVE) Urine Bilirubin (NEGATIVE) Urine Urobilinogen (0-1) mg/dL Ur Leukocyte Esterase (NEGATIVE) Urine WBC (Auto) (0-5) /HPF Urine RBC (Auto) (0-2) /HPF U Hyaline Cast (Auto) (0-2) /LPF U Epithel Cells (Auto) (FEW) /HPF Urine Bacteria (Auto) (NEGATIVE) /HPF Urine Mucus (Auto) (NEGATIVE) /HPF Urine Culture Reflexed (NO) Urine Glucose (NEGATIVE) mg/dL Urine Opiates Level (NEGATIVE) Ur Methadone (NEGATIVE) Urine Barbiturates (NEGATIVE) Ur Phencyclidine (PCP) (NEGATIVE) Urine Amphetamine (NEGATIVE) U Benzodiazepine Level (NEGATIVE) Urine Cocaine (NEGATIVE) Urine Marijuana (THC) (NEGATIVE) 12/29/19 12/29/19 12/29/19 Range/Units 20:45 20:45 23:47 WBC (4.0-10.5) K/mm3 RBC (4.1-5.4) M/mm3 Hgb (12.0-16.0) gm/dl Hct (35-47) % MCV (78-100) fl MCH (26-32) pg MCHC (32-36) g/dl RDW (11.5-14.0) % Plt Count (150-450) K/mm3 MPV (7.5-11.0) fl Gran % (36.0-66.0) % Eos # (Auto) (0-0.5) Absolute Lymphs (auto) (1.0-4.6) Absolute Monos (auto) (0.0-1.3) Lymphocytes % (24.0-44.0) % Monocytes % (0.0-12.0) % Eosinophils % (0.00-5.0) % Basophils % (0.0-0.4) % Absolute Granulocytes (1.4-6.9) Basophils # (0-0.4) Sodium (137-145) mmol/L Potassium (3.5-5.1) mmol/L Chloride (98-107) mmol/L Carbon Dioxide (22-30) mmol/L Anion Gap (5-15) MEQ/L BUN (7-17) mg/dL Creatinine (0.52-1.04) mg/dL Estimated GFR ML/MIN Glucose (74-106) mg/dL Calcium (8.4-10.2) mg/dL Total Bilirubin (0.2-1.3) mg/dL AST (14-36) U/L ALT (0-35) U/L Alkaline Phosphatase (38-126) U/L Troponin I < 0.012 (0.000-0.034) ng/mL Serum Total Protein (6.3-8.2) g/dL Albumin (3.5-5.0) g/dL Urine Color YELLOW (YELLOW) Urine Appearance CLEAR (CLEAR) Urine pH 6.0 (5-6) Ur Specific [place] 1.010 (1.005-1.025) Urine Protein NEGATIVE (Negative) Urine Ketones TRACE (NEGATIVE) Urine Blood SMALL (0-5) Costa/ul Urine Nitrite NEGATIVE (NEGATIVE) Urine Bilirubin NEGATIVE (NEGATIVE) Urine Urobilinogen NEGATIVE (0-1) mg/dL Ur Leukocyte Esterase NEGATIVE (NEGATIVE) Urine WBC (Auto) NONE (0-5) /HPF Urine RBC (Auto) 3-5 (0-2) /HPF U Hyaline Cast (Auto) 6-10 (0-2) /LPF U Epithel Cells (Auto) NONE (FEW) /HPF Urine Bacteria (Auto) NONE (NEGATIVE) /HPF Urine Mucus (Auto) SLIGHT (NEGATIVE) /HPF Urine Culture Reflexed NO (NO) Urine Glucose NEGATIVE (NEGATIVE) mg/dL Urine Opiates Level NEGATIVE (NEGATIVE) Ur Methadone NEGATIVE (NEGATIVE) Urine Barbiturates NEGATIVE (NEGATIVE) Ur Phencyclidine (PCP) NEGATIVE (NEGATIVE) Urine Amphetamine NEGATIVE (NEGATIVE) U Benzodiazepine Level NEGATIVE (NEGATIVE) Urine Cocaine NEGATIVE (NEGATIVE) Urine Marijuana (THC) NEGATIVE (NEGATIVE) 12/30/19 12/30/19 12/30/19 Range/Units 02:50 06:00 06:00 WBC 3.8 L (4.0-10.5) K/mm3 RBC 3.62 L (4.1-5.4) M/mm3 Hgb 11.4 L (12.0-16.0) gm/dl Hct 35.4 (35-47) % MCV 97.8 (78-100) fl MCH 31.5 (26-32) pg MCHC 32.2 (32-36) g/dl RDW 13.6 (11.5-14.0) % Plt Count 216 (150-450) K/mm3 MPV 9.2 (7.5-11.0) fl Gran % 60.2 (36.0-66.0) % Eos # (Auto) 0.10 (0-0.5) Absolute Lymphs (auto) 1.04 (1.0-4.6) Absolute Monos (auto) 0.36 (0.0-1.3) Lymphocytes % 27.3 (24.0-44.0) % Monocytes % 9.4 (0.0-12.0) % Eosinophils % 2.6 (0.00-5.0) % Basophils % 0.5 (0.0-0.4) % Absolute Granulocytes 2.29 (1.4-6.9) Basophils # 0.02 (0-0.4) Sodium (137-145) mmol/L Potassium (3.5-5.1) mmol/L Chloride (98-107) mmol/L Carbon Dioxide (22-30) mmol/L Anion Gap (5-15) MEQ/L BUN (7-17) mg/dL Creatinine (0.52-1.04) mg/dL Estimated GFR ML/MIN Glucose (74-106) mg/dL Calcium (8.4-10.2) mg/dL Total Bilirubin (0.2-1.3) mg/dL AST (14-36) U/L ALT (0-35) U/L Alkaline Phosphatase (38-126) U/L Troponin I < 0.012 < 0.012 (0.000-0.034) ng/mL Serum Total Protein (6.3-8.2) g/dL Albumin (3.5-5.0) g/dL Urine Color (YELLOW) Urine Appearance (CLEAR) Urine pH (5-6) Ur Specific [place] (1.005-1.025) Urine Protein (Negative) Urine Ketones (NEGATIVE) Urine Blood (0-5) Costa/ul Urine Nitrite (NEGATIVE) Urine Bilirubin (NEGATIVE) Urine Urobilinogen (0-1) mg/dL Ur Leukocyte Esterase (NEGATIVE) Urine WBC (Auto) (0-5) /HPF Urine RBC (Auto) (0-2) /HPF U Hyaline Cast (Auto) (0-2) /LPF U Epithel Cells (Auto) (FEW) /HPF Urine Bacteria (Auto) (NEGATIVE) /HPF Urine Mucus (Auto) (NEGATIVE) /HPF Urine Culture Reflexed (NO) Urine Glucose (NEGATIVE) mg/dL Urine Opiates Level (NEGATIVE) Ur Methadone (NEGATIVE) Urine Barbiturates (NEGATIVE) Ur Phencyclidine (PCP) (NEGATIVE) Urine Amphetamine (NEGATIVE) U Benzodiazepine Level (NEGATIVE) Urine Cocaine (NEGATIVE) Urine Marijuana (THC) (NEGATIVE) - Radiology Impressions Radiology Exams & Impressions: Radiology Procedures Category Date Time Status CHEST 1 VIEW (PORTABLE) Stat Exams 12/29/19 20:31 Completed HEAD WITHOUT CONTRAST [CT] Stat Exams 12/29/19 20:29 Completed - Other Procedures and Tests Respiratory Therapy 12/29/19 22:59 Oxygen Nasal Cannula 2 lpm Assessment/Plan (1) Syncope Current Visit: Yes Status: Acute Assessment & Plan: Do MRI brain. RN is calling for echo and Holter reports. Pt needs appt with [facility] to f/u. Code(s): R55 - SYNCOPE AND COLLAPSE (2) Dizziness Current Visit: Yes Status: Acute Code(s): R42 - DIZZINESS AND GIDDINESS Hospital Summary - Hospital Course Hospital Course: is a 74 year old female pt of mine from [facility] with HTN and osteoporosis, hx of melanoma and breast ca, who was admitted through ER after being found unresponsive at home. She remembers standing in the kitchen feeling nauseated, went to get a trashcan and then doesn't remember anything until she was in the ER. She is feeling well this morning, no complaints. CT head and CXR were nonacute in ER. She came to see me last week c/o dizziness, worse with turning her head and raising up from being bent over. Orthostats were fine. Echocardiogram, carotid dopplers, and Holter monitor x 24h were done; carotid doppler report is nonacute, echo and Holter reports are pending. Her labs have been nonacute; her troponins neg x 4. Urine drug screen and UA neg. I am adding a TSH today as it was last checked in 2019. Will check MRI brain as well. Will send pt home after today's testing as she is feeling well. Will have her f /u with [facility]. - Vitals & Intake/Output Vital Signs: Vital Signs Temperature 98.2 F 12/30/19 07:34 Pulse Rate 93 H 12/30/19 07:34 Respiratory Rate 14 12/30/19 08:00 Blood Pressure 137/65 12/30/19 07:34 O2 Sat by Pulse Oximetry 99 12/30/19 07:34 Intake & Output: Intake & Output 12/27/19 12/28/19 12/29/19 12/30/19 11:59 11:59 11:59 11:59 Intake Total 120 Output Total 850 Balance -730 Weight 59.6 kg - Lab Result Diagrams: 12/30/19 06:00 12/29/19 20:45 Lab Results-Last 24 Hrs: Lab Results-Last 24 Hours 12/29/19 12/29/19 12/29/19 Range/Units 20:45 20:45 20:45 WBC 5.4 (4.0-10.5) K/mm3 RBC 3.77 L (4.1-5.4) M/mm3 Hgb 12.1 (12.0-16.0) gm/dl Hct 37.0 (35-47) % MCV 98.1 (78-100) fl MCH 32.1 H (26-32) pg MCHC 32.7 (32-36) g/dl RDW 13.6 (11.5-14.0) % Plt Count 223 (150-450) K/mm3 MPV 8.8 (7.5-11.0) fl Gran % 60.7 (36.0-66.0) % Eos # (Auto) 0.12 (0-0.5) Absolute Lymphs (auto) 1.52 (1.0-4.6) Absolute Monos (auto) 0.48 (0.0-1.3) Lymphocytes % 27.9 (24.0-44.0) % Monocytes % 8.8 (0.0-12.0) % Eosinophils % 2.2 (0.00-5.0) % Basophils % 0.4 (0.0-0.4) % Absolute Granulocytes 3.30 (1.4-6.9) Basophils # 0.02 (0-0.4) Sodium 136 L (137-145) mmol/L Potassium 3.6 (3.5-5.1) mmol/L Chloride 100 (98-107) mmol/L Carbon Dioxide 22 (22-30) mmol/L Anion Gap 17.5 H (5-15) MEQ/L BUN 12 (7-17) mg/dL Creatinine 0.91 (0.52-1.04) mg/dL Estimated GFR > 60.0 ML/MIN Glucose 91 (74-106) mg/dL Calcium 9.1 (8.4-10.2) mg/dL Total Bilirubin 0.50 (0.2-1.3) mg/dL AST 29 (14-36) U/L ALT 13 (0-35) U/L Alkaline Phosphatase 42 (38-126) U/L Troponin I < 0.012 (0.000-0.034) ng/mL Serum Total Protein 6.9 (6.3-8.2) g/dL Albumin 4.2 (3.5-5.0) g/dL Urine Color (YELLOW) Urine Appearance (CLEAR) Urine pH (5-6) Ur Specific [place] (1.005-1.025) Urine Protein (Negative) Urine Ketones (NEGATIVE) Urine Blood (0-5) Costa/ul Urine Nitrite (NEGATIVE) Urine Bilirubin (NEGATIVE) Urine Urobilinogen (0-1) mg/dL Ur Leukocyte Esterase (NEGATIVE) Urine WBC (Auto) (0-5) /HPF Urine RBC (Auto) (0-2) /HPF U Hyaline Cast (Auto) (0-2) /LPF U Epithel Cells (Auto) (FEW) /HPF Urine Bacteria (Auto) (NEGATIVE) /HPF Urine Mucus (Auto) (NEGATIVE) /HPF Urine Culture Reflexed (NO) Urine Glucose (NEGATIVE) mg/dL Urine Opiates Level (NEGATIVE) Ur Methadone (NEGATIVE) Urine Barbiturates (NEGATIVE) Ur Phencyclidine (PCP) (NEGATIVE) Urine Amphetamine (NEGATIVE) U Benzodiazepine Level (NEGATIVE) Urine Cocaine (NEGATIVE) Urine Marijuana (THC) (NEGATIVE) 12/29/19 12/29/19 12/29/19 Range/Units 20:45 20:45 23:47 WBC (4.0-10.5) K/mm3 RBC (4.1-5.4) M/mm3 Hgb (12.0-16.0) gm/dl Hct (35-47) % MCV (78-100) fl MCH (26-32) pg MCHC (32-36) g/dl RDW (11.5-14.0) % Plt Count (150-450) K/mm3 MPV (7.5-11.0) fl Gran % (36.0-66.0) % Eos # (Auto) (0-0.5) Absolute Lymphs (auto) (1.0-4.6) Absolute Monos (auto) (0.0-1.3) Lymphocytes % (24.0-44.0) % Monocytes % (0.0-12.0) % Eosinophils % (0.00-5.0) % Basophils % (0.0-0.4) % Absolute Granulocytes (1.4-6.9) Basophils # (0-0.4) Sodium (137-145) mmol/L Potassium (3.5-5.1) mmol/L Chloride (98-107) mmol/L Carbon Dioxide (22-30) mmol/L Anion Gap (5-15) MEQ/L BUN (7-17) mg/dL Creatinine (0.52-1.04) mg/dL Estimated GFR ML/MIN Glucose (74-106) mg/dL Calcium (8.4-10.2) mg/dL Total Bilirubin (0.2-1.3) mg/dL AST (14-36) U/L ALT (0-35) U/L Alkaline Phosphatase (38-126) U/L Troponin I < 0.012 (0.000-0.034) ng/mL Serum Total Protein (6.3-8.2) g/dL Albumin (3.5-5.0) g/dL Urine Color YELLOW (YELLOW) Urine Appearance CLEAR (CLEAR) Urine pH 6.0 (5-6) Ur Specific [place] 1.010 (1.005-1.025) Urine Protein NEGATIVE (Negative) Urine Ketones TRACE (NEGATIVE) Urine Blood SMALL (0-5) Costa/ul Urine Nitrite NEGATIVE (NEGATIVE) Urine Bilirubin NEGATIVE (NEGATIVE) Urine Urobilinogen NEGATIVE (0-1) mg/dL Ur Leukocyte Esterase NEGATIVE (NEGATIVE) Urine WBC (Auto) NONE (0-5) /HPF Urine RBC (Auto) 3-5 (0-2) /HPF U Hyaline Cast (Auto) 6-10 (0-2) /LPF U Epithel Cells (Auto) NONE (FEW) /HPF Urine Bacteria (Auto) NONE (NEGATIVE) /HPF Urine Mucus (Auto) SLIGHT (NEGATIVE) /HPF Urine Culture Reflexed NO (NO) Urine Glucose NEGATIVE (NEGATIVE) mg/dL Urine Opiates Level NEGATIVE (NEGATIVE) Ur Methadone NEGATIVE (NEGATIVE) Urine Barbiturates NEGATIVE (NEGATIVE) Ur Phencyclidine (PCP) NEGATIVE (NEGATIVE) Urine Amphetamine NEGATIVE (NEGATIVE) U Benzodiazepine Level NEGATIVE (NEGATIVE) Urine Cocaine NEGATIVE (NEGATIVE) Urine Marijuana (THC) NEGATIVE (NEGATIVE) 12/30/19 12/30/19 12/30/19 Range/Units 02:50 06:00 06:00 WBC 3.8 L (4.0-10.5) K/mm3 RBC 3.62 L (4.1-5.4) M/mm3 Hgb 11.4 L (12.0-16.0) gm/dl Hct 35.4 (35-47) % MCV 97.8 (78-100) fl MCH 31.5 (26-32) pg MCHC 32.2 (32-36) g/dl RDW 13.6 (11.5-14.0) % Plt Count 216 (150-450) K/mm3 MPV 9.2 (7.5-11.0) fl Gran % 60.2 (36.0-66.0) % Eos # (Auto) 0.10 (0-0.5) Absolute Lymphs (auto) 1.04 (1.0-4.6) Absolute Monos (auto) 0.36 (0.0-1.3) Lymphocytes % 27.3 (24.0-44.0) % Monocytes % 9.4 (0.0-12.0) % Eosinophils % 2.6 (0.00-5.0) % Basophils % 0.5 (0.0-0.4) % Absolute Granulocytes 2.29 (1.4-6.9) Basophils # 0.02 (0-0.4) Sodium (137-145) mmol/L Potassium (3.5-5.1) mmol/L Chloride (98-107) mmol/L Carbon Dioxide (22-30) mmol/L Anion Gap (5-15) MEQ/L BUN (7-17) mg/dL Creatinine (0.52-1.04) mg/dL Estimated GFR ML/MIN Glucose (74-106) mg/dL Calcium (8.4-10.2) mg/dL Total Bilirubin (0.2-1.3) mg/dL AST (14-36) U/L ALT (0-35) U/L Alkaline Phosphatase (38-126) U/L Troponin I < 0.012 < 0.012 (0.000-0.034) ng/mL Serum Total Protein (6.3-8.2) g/dL Albumin (3.5-5.0) g/dL Urine Color (YELLOW) Urine Appearance (CLEAR) Urine pH (5-6) Ur Specific [place] (1.005-1.025) Urine Protein (Negative) Urine Ketones (NEGATIVE) Urine Blood (0-5) Costa/ul Urine Nitrite (NEGATIVE) Urine Bilirubin (NEGATIVE) Urine Urobilinogen (0-1) mg/dL Ur Leukocyte Esterase (NEGATIVE) Urine WBC (Auto) (0-5) /HPF Urine RBC (Auto) (0-2) /HPF U Hyaline Cast (Auto) (0-2) /LPF U Epithel Cells (Auto) (FEW) /HPF Urine Bacteria (Auto) (NEGATIVE) /HPF Urine Mucus (Auto) (NEGATIVE) /HPF Urine Culture Reflexed (NO) Urine Glucose (NEGATIVE) mg/dL Urine Opiates Level (NEGATIVE) Ur Methadone (NEGATIVE) Urine Barbiturates (NEGATIVE) Ur Phencyclidine (PCP) (NEGATIVE) Urine Amphetamine (NEGATIVE) U Benzodiazepine Level (NEGATIVE) Urine Cocaine (NEGATIVE) Urine Marijuana (THC) (NEGATIVE) - Radiology Exams Ordered Rad Exams-Entire Visit: Radiology Procedures Category Date Time Status CHEST 1 VIEW (PORTABLE) Stat Exams 12/29/19 20:31 Completed HEAD WITHOUT CONTRAST [CT] Stat Exams 12/29/19 20:29 Completed - Procedures and Test Procedures and Tests throughout Hospitalization: Therapy Orders & Screens 12/29/19 22:59 Oxygen Nasal Cannula 2 lpm Comment: Diagnosis: TIA - Discharge Disposition: Home, Self-Care Condition: Stable Prescriptions: No Action Aspirin 81 gm Chew [Baby Aspirin 81 mg Chew] 81 mg PO DAILY lisinopriL [Lisinopril] 2.5 mg PO DAILY Follow up with: CLAY AMES [Primary Care Provider] - 1 Week
[2019-12-30] MEDS ORDERED: ECOTRIN 81 MG PO SCH (10:00)
[2019-12-30] MEDS ORDERED: Zestril 5 MG PO SCH (10:00)
[2019-12-30 10:42] LABS: ALBUMIN 3.6 g/dL (3.5-5.0); ALKALINE PHOSPHATASE 36 U/L (38-126); ANION GAP 10.6 MEQ/L (5-15); BLOOD UREA NITROGEN 12 mg/dL (7-17); CHLORIDE 103 mmol/L (98-107); Calcium 8.9 mg/dL (8.4-10.2); Carbon Dioxide 25 mmol/L (22-30); Creatinine 1 0.49 mg/dL (0.52-1.04); Glucose 78 mg/dL (74-106); Potassium 3.8 mmol/L (3.5-5.1); SGOT/AST 35 U/L (14-36); SGPT/ALT 12 U/L (0-35); SODIUM 135 mmol/L (137-145); Total Protein 5.9 g/dL (6.3-8.2)
[2019-12-30 11:42] VITALS: BP 161/70; PULSE 90; O2SAT 97
--- NOTE | 2019-12-30 11:49 | PCM.DCORD ---
- Discharge Disposition: Home, Self-Care Condition: Stable Prescriptions: Continue Aspirin 81 gm Chew [Baby Aspirin 81 mg Chew] 81 mg PO DAILY lisinopriL [Lisinopril] 2.5 mg PO DAILY Follow up with: KRYSTEN MARINO [COURTESY STAFF] - 01/07/20 9:30 am CLAY AMES [Primary Care Provider] - 01/06/20 11:00 am
--- NOTE | 2019-12-30 14:01 | XRAY ---
Indication: Syncope. Sagittal, coronal, and axial MRI brain was performed using pre-and post T1, T2, FLAIR, diffusion, and ADC sequences. 10 cc Dotarem contrast used. Comparison: None There is age-appropriate global atrophy and mild periventricular degenerative micro-ischemia signal bilaterally. Basal ganglia demonstrates a few tiny remote lacunar infarcts bilaterally. Diffusion images are negative for restricted signal. No acute intracranial hemorrhage, abnormal extra-axial fluid collection, or mass effect. Following gadolinium, there is no abnormal enhancing intra or extra-axial mass. Fourth ventricle is midline without hydrocephalus. 7/8 cranial nerve complex bilaterally symmetric. Normal flow-void signal within the major intracerebral circulation. Normal appearing craniocervical junction and sella turcica. Visualized paranasal sinuses are clear. Impression: 1. Atrophy and degenerative micro-ischemia within normal limits for patient's age. 2. Bilateral basal ganglia remote lacunar infarcts. 3. No acute intracranial abnormalities or evidence for evolving large vessel territorial stroke. 4. Negative contrast exam.
== END 2019-12-30 16:55 | disposition home or self-care (01) ==
LOC: ED 20:26 → MED SURG 22:23
PROVIDERS: ADMIT Family Medicine; ATTEND Family Medicine
DX: R55 Syncope and collapse (principal); R42 Dizziness and giddiness; R11.0 Nausea; R19.7 Diarrhea, unspecified; M25.572 Pain in left ankle and joints of left foot; M25.571 Pain in right ankle and joints of right foot; F32.9 Major depressive disorder, single episode, unspecified; I10 Essential (primary) hypertension; Z85.3 Personal history of malignant neoplasm of breast; Z85.820 Personal history of malignant melanoma of skin; Z79.899 Other long term (current) drug therapy
CPT/HCPCS: 36415; 51702; 70450; 70553; 80053; 80307; 81001; 84443; 84484; 85025; 93005; 93041; 93268; 94762; 99291; G0378; 36000; 71045; 94760; 99285; A9270-GY

== ENCOUNTER 2021-03-12 18:42 | Inpatient (IN) | payer MEDICARE, OTHER ==
--- NOTE | 2021-03-12 19:00 | ERPHSYRPT ---
- History of Present Illness Time Seen by Provider: 03/12/21 18:50 Source: patient, EMS Exam Limitations: clinical condition Physician History: This is an 79-year-old white female who was brought in by EMS service for possible stroke symptoms. Patient did consume alcohol and was at a alliance party prior to arrival to the emergency department. She did not hit her head. Patient is very lethargic upon arrival and went directly to the CAT scan to obtain a stat CAT scan of the head without contrast. Patient was last well approximately 5:45 PM today per EMS report. Patient consumes wine on a daily basis. Since she was at a alliance party, family member states that she had consumed more alcohol than typical. History of mini strokes in the past Severity: moderate Character of Deficits: new weakness, other (Slow to speak) Deficits: cannot stand, cannot walk Baseline/Normal Cognition: alert oriented x 3 Current Cognition: poor alertness Baseline Gait: walks w/o assistance Associated Symptoms: confusion Travel Risk - International Travel Have you traveled outside of the country in past 3 weeks: No - Coronavirus Screening Are you exhibiting any of the following symptoms?: No Close contact with a COVID-19 positive Pt in past 14-21 Days: No - Review of Systems Constitutional: Lethargy, Weakness Eyes: No Symptoms Ears, Nose, & Throat: No Symptoms Respiratory: No Symptoms Cardiac: No Symptoms Abdominal/Gastrointestinal: No Symptoms Genitourinary Symptoms: No Symptoms Neurological: Lethargy, Other (Generalized weakness. Smells of alcohol) Psychological: Other (Daily alcohol use) Endocrine: No Symptoms Hematologic/Lymphatic: No Symptoms Immunological/Allergic: No Symptoms All Other Systems: Reviewed and Negative - Past Medical History Pertinent Past Medical History: Yes - Past Surgical History Past Surgical History: Yes - Social History Smoking Status: Never smoker Alcohol Use: Chronic (And daily) Drug Use: none - Nursing Vital Signs Nursing Vital Signs: Initial Vital Signs Pulse Rate 66 03/12/21 18:50 Respiratory Rate 20 03/12/21 18:50 Blood Pressure 137/69 03/12/21 18:50 O2 Sat by Pulse Oximetry 99 03/12/21 18:50 Pain Scale Pain Intensity 0 - Boel[place] Coma Scale Best Eye Response (Pepe): (3) open to voice Best Verbal Response (Boelus): (4) confused conversation Best Motor Response (Pepe): (4) withdraws to pain Boelus Total: 11 - Physical Exam General Appearance: lethargy Eye Exam: bilateral eye: normal inspection, PERRL, EOMI Ears, Nose, Throat Exam: normal ENT inspection, moist mucous membranes Neck Exam: normal inspection, non-tender, supple, full range of motion Respiratory: normal breath sounds, lungs clear, airway intact, No chest tenderne ss, No respiratory distress Cardiovascular: regular rate/rhythm, normal heart sounds, normal peripheral pulses Gastrointestinal: soft, normal bowel sounds, No tenderness Pelvic Exam: not done Rectal Exam: not done Back Exam: normal inspection, No CVA tenderness, No vertebral tenderness Extremity Exam: normal inspection, pelvis stable Mental 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, 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: 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 hearing, PERRL, tongue midline Skin Exam: normal color, warm, dry SpO2 Interpretation: normal O2 Delivery: Room Air - Course Nursing assessment & vital signs reviewed: Yes Ordered Tests: Active Orders 24 hr Category Date Time Status Carriage Rider STAT Care 03/12/21 19:02 Active Catheter-[place] STAT Care 03/12/21 19:01 Active Catheter-[place] STAT Care 03/12/21 19:03 Active EKG-ER Only STAT Care 03/12/21 19:01 Active IV Insertion STAT Care 03/12/21 19:01 Active NPO (ED) STAT Care 03/12/21 19:02 Active POCT Glucose Check STAT Care 03/12/21 19:01 Active Pulse Oximetry (ED) STAT Care 03/12/21 19:01 Active Tele-Health Consult ROUTINE Cons 03/12/21 20:54 Active HEAD WITHOUT CONTRAST [CT] Stat Exams 03/12/21 19:02 Taken Alcohol [ETHYL ALCOHOL] Stat Lab 03/12/21 19:07 Completed CBC W DIFF Stat Lab 03/12/21 19:07 Completed CMP Stat Lab 03/12/21 19:07 Completed CULTURE,URINE Stat Lab 03/12/21 19:04 Received PROTIME WITH INR Stat Lab 03/12/21 19:07 Completed UA W/RFX UR CULTURE Stat Lab 03/12/21 19:04 Completed Urine Triage Profile Stat Lab 03/12/21 19:23 Completed Transfer Order Routine Transfer 03/12/21 Ordered Lab/Rad Data: Laboratory Result Diagrams 03/12/21 19:07 03/12/21 19:07 Laboratory Results 03/12/21 03/12/21 03/12/21 Range/Units 19:23 19:07 19:07 WBC (4.0-10.5) K/mm3 RBC (4.1-5.4) M/mm3 Hgb (12.0-16.0) gm/dl Hct (35-47) % MCV (78-100) fl MCH (26-32) pg MCHC (32-36) g/dl RDW (11.5-14.0) % Plt Count (150-450) K/mm3 MPV (7.5-11.0) fl Gran % (36.0-66.0) % Eos # (Auto) (0-0.5) Absolute Lymphs (auto) (1.0-4.6) Absolute Monos (auto) (0.0-1.3) Lymphocytes % (24.0-44.0) % Monocytes % (0.0-12.0) % Eosinophils % (0.00-5.0) % Basophils % (0.0-0.4) % Absolute Granulocytes (1.4-6.9) Basophils # (0-0.4) PT 10.7 (9.4-12.5) SECONDS INR 0.91 (0.8-3.0) Sodium (137-145) mmol/L Potassium (3.5-5.1) mmol/L Chloride (98-107) mmol/L Carbon Dioxide (22-30) mmol/L Anion Gap (5-15) MEQ/L BUN (7-17) mg/dL Creatinine (0.52-1.04) mg/dL Estimated GFR ML/MIN Glucose (74-106) mg/dL Calcium (8.4-10.2) mg/dL Total Bilirubin (0.2-1.3) mg/dL AST (14-36) U/L ALT (0-35) U/L Alkaline Phosphatase (38-126) U/L Serum Total Protein (6.3-8.2) g/dL Albumin (3.5-5.0) g/dL Urine Color (YELLOW) Urine Appearance (CLEAR) Urine pH (5-6) Ur Specific [place] (1.005-1.025) Urine Protein (Negative) Urine Ketones (NEGATIVE) Urine Blood (0-5) [place] Urine Nitrite (NEGATIVE) Urine Bilirubin (NEGATIVE) Urine Urobilinogen (0-1) mg/dL Ur Leukocyte Esterase (NEGATIVE) Urine WBC (Auto) (0-5) /HPF Urine RBC (Auto) (0-2) /HPF U Epithel Cells (Auto) (FEW) /HPF Urine Bacteria (Auto) (NEGATIVE) /HPF Urine Culture Reflexed (NO) Urine Glucose (NEGATIVE) mg/dL Urine Opiates Level NEGATIVE (NEGATIVE) Ur Methadone NEGATIVE (NEGATIVE) Urine Barbiturates NEGATIVE (NEGATIVE) Ur Phencyclidine (PCP) NEGATIVE (NEGATIVE) Urine Amphetamine NEGATIVE (NEGATIVE) U Benzodiazepine Level NEGATIVE (NEGATIVE) Urine Cocaine NEGATIVE (NEGATIVE) Urine Marijuana (THC) NEGATIVE (NEGATIVE) Ethyl Alcohol 94 H (0-10) mg/dL 03/12/21 03/12/21 03/12/21 Range/Units 19:07 19:07 19:04 WBC 5.5 (4.0-10.5) K/mm3 RBC 3.85 L (4.1-5.4) M/mm3 Hgb 12.3 (12.0-16.0) gm/dl Hct 37.5 (35-47) % MCV 97.4 (78-100) fl MCH 31.9 (26-32) pg MCHC 32.8 (32-36) g/dl RDW 12.8 (11.5-14.0) % Plt Count 247 (150-450) K/mm3 MPV 9.8 (7.5-11.0) fl Gran % 50.0 (36.0-66.0) % Eos # (Auto) 0.12 (0-0.5) Absolute Lymphs (auto) 2.12 (1.0-4.6) Absolute Monos (auto) 0.49 (0.0-1.3) Lymphocytes % 38.5 (24.0-44.0) % Monocytes % 8.9 (0.0-12.0) % Eosinophils % 2.2 (0.00-5.0) % Basophils % 0.4 (0.0-0.4) % Absolute Granulocytes 2.75 (1.4-6.9) Basophils # 0.02 (0-0.4) PT (9.4-12.5) SECONDS INR (0.8-3.0) Sodium 131 L (137-145) mmol/L Potassium 3.2 L (3.5-5.1) mmol/L Chloride 97 L (98-107) mmol/L Carbon Dioxide 22 (22-30) mmol/L Anion Gap 15.3 H (5-15) MEQ/L BUN 8 (7-17) mg/dL Creatinine 0.77 (0.52-1.04) mg/dL Estimated GFR > 60.0 ML/MIN Glucose 115 H (74-106) mg/dL Calcium 8.9 (8.4-10.2) mg/dL Total Bilirubin 0.30 (0.2-1.3) mg/dL AST 29 (14-36) U/L ALT 11 (0-35) U/L Alkaline Phosphatase 34 L (38-126) U/L Serum Total Protein 6.9 (6.3-8.2) g/dL Albumin 4.5 (3.5-5.0) g/dL Urine Color YELLOW (YELLOW) Urine Appearance CLEAR (CLEAR) Urine pH 6.0 (5-6) Ur Specific [place] 1.006 (1.005-1.025) Urine Protein NEGATIVE (Negative) Urine Ketones TRACE (NEGATIVE) Urine Blood MODERATE (0-5) [place] Urine Nitrite NEGATIVE (NEGATIVE) Urine Bilirubin NEGATIVE (NEGATIVE) Urine Urobilinogen NEGATIVE (0-1) mg/dL Ur Leukocyte Esterase NEGATIVE (NEGATIVE) Urine WBC (Auto) 0-2 (0-5) /HPF Urine RBC (Auto) 3-5 (0-2) /HPF U Epithel Cells (Auto) NONE (FEW) /HPF Urine Bacteria (Auto) NONE SEEN (NEGATIVE) /HPF Urine Culture Reflexed ORDERED SEPARATELY (NO) Urine Glucose NEGATIVE (NEGATIVE) mg/dL Urine Opiates Level (NEGATIVE) Ur Methadone (NEGATIVE) Urine Barbiturates (NEGATIVE) Ur Phencyclidine (PCP) (NEGATIVE) Urine Amphetamine (NEGATIVE) U Benzodiazepine Level (NEGATIVE) Urine Cocaine (NEGATIVE) Urine Marijuana (THC) (NEGATIVE) Ethyl Alcohol (0-10) mg/dL - Progress Progress: improved, re-examined Progress Note: 03/12/21 21:33 Medical decision making: This patient resolved her symptoms fairly quickly. She likely had a TIA. However there is alcohol on board as well. We had a tele neurology consultation. Dr. Agee is the teleneurologist. He diagnoses the patient also with TIA and alcohol intoxication. His recommendation is a non-TPA treatment plan including a full aspirin daily. He wants to hold on the Plavix at this time. We will give her low rate isotonic fluid to help with increasing her blood pressure. We will obtain an MRI and an MRA of the head and neck as well as carotid ultrasound. I will discuss this with Dr. Miller our hospitalist. I placed a call into him. 03/12/21 21:37 03/12/21 21:38 CAT scan of the head without contrast shows chronic microvascular disease and no acute infarct. There is a small right convexity that is consistent with either chronic subdural hematoma or hygroma. There is no midline shift and no acute hemorrhage. Discussed with .: Noah Counseled pt/family regarding: lab results, diagnosis, need for follow-up, rad results - Departure Departure Disposition: In-patient Admission Clinical Impression: TIA (transient ischemic attack), Alcohol intoxication Condition: Stable Critical Care Time: Yes Critical Care Time(excluding separately billable procedures): Critical 30-74 mins Referrals: CLAY QUINTANA [Primary Care Provider] -
[2021-03-12 19:11] LABS: Absolute Neutrophil Ct (ANC) 2.75 (1.4-6.9); BASOPHIL % 0.4 % (0.0-0.4); Basophil (Absolute #) 0.02 (0-0.4); Eosinophil % 2.2 % (0.00-5.0); Eosinophil (Absolute #) 0.12 (0-0.5); Hematocrit 37.5 % (35-47); Hemoglobin 12.3 gm/dl (12.0-16.0); Lymphocyte (Absolute #) 2.12 (1.0-4.6); Lymphocytes % 38.5 % (24.0-44.0); Mean Cell Volume 97.4 fl (78-100); Mean Corpuscular Hemoglobin 31.9 pg (26-32); Mean Corpuscular Hgb Concent. 32.8 g/dl (32-36); Mean Platelet Volume 9.8 fl (7.5-11.0); Monocyte (Absolute #) 0.49 (0.0-1.3); Monocytes % 8.9 % (0.0-12.0); Platelet Count 247 K/mm3 (150-450); Red Blood Count 3.85 M/mm3 (4.1-5.4); Red Cell Distribution Width 12.8 % (11.5-14.0); White Blood Count 5.5 K/mm3 (4.0-10.5)
[2021-03-12 19:20] LABS: INR 0.91 (0.8-3.0); PROTIME 10.7 SECONDS (9.4-12.5)
[2021-03-12 19:24] LABS: ALBUMIN 4.5 g/dL (3.5-5.0); ALKALINE PHOSPHATASE 34 U/L (38-126); ANION GAP 15.3 MEQ/L (5-15); BLOOD UREA NITROGEN 8 mg/dL (7-17); CHLORIDE 97 mmol/L (98-107); Calcium 8.9 mg/dL (8.4-10.2); Carbon Dioxide 22 mmol/L (22-30); Creatinine 1 0.77 mg/dL (0.52-1.04); EST GLOMERULAR FILTRATION RATE > 60.0 ML/MIN; Glucose 115 mg/dL (74-106); Potassium 3.2 mmol/L (3.5-5.1); SGOT/AST 29 U/L (14-36); SGPT/ALT 11 U/L (0-35); SODIUM 131 mmol/L (137-145); Total Protein 6.9 g/dL (6.3-8.2)
[2021-03-12 19:38] LABS: Appearance CLEAR (CLEAR); Bilirubin NEGATIVE (NEGATIVE); Blood MODERATE Ery/ul (0-5); Glucose NEGATIVE (NEGATIVE); Ketones TRACE (NEGATIVE); Leukocyte Esterase NEGATIVE (NEGATIVE); Nitrite NEGATIVE (NEGATIVE); Protein,Urine Dip NEGATIVE (Negative); Specific Gravity 1.006 (1.005-1.025); Urobilinogen NEGATIVE mg/dL (0-1); WBC 0-2 /HPF (0-5)
[2021-03-12 19:41] LABS: Bacteria NONE SEEN /HPF (NEGATIVE)
[2021-03-12 19:45] LABS: Amphetamine,Urine NEGATIVE (NEGATIVE); Barbiturate,Urine NEGATIVE (NEGATIVE); Benzodiazepine,Urine NEGATIVE (NEGATIVE); Cocaine,Urine NEGATIVE (NEGATIVE); Methadone,Urine NEGATIVE (NEGATIVE); Opiate,Urine NEGATIVE (NEGATIVE); PCP,Urine NEGATIVE (NEGATIVE); THC,Urine NEGATIVE (NEGATIVE)
[2021-03-12] MEDS ORDERED: Sodium Chloride 0.9% 1000 ML 1,000 ML IV SCH (23:57)
[2021-03-12] MEDS ORDERED: Zofran 4 MG/2 ML VIAL IV PRN (23:57)
[2021-03-12] MEDS ORDERED: TYLENOL 325 MG PO PRN (23:57)
[2021-03-13 06:36] LABS: Absolute Neutrophil Ct (ANC) 2.03 (1.4-6.9); BASOPHIL % 0.3 % (0.0-0.4); Basophil (Absolute #) 0.01 (0-0.4); Eosinophil % 0.8 % (0.00-5.0); Eosinophil (Absolute #) 0.03 (0-0.5); Hemoglobin 11.1 gm/dl (12.0-16.0); Lymphocyte (Absolute #) 1.16 (1.0-4.6); Lymphocytes % 32.7 % (24.0-44.0); Mean Corpuscular Hgb Concent. 32.6 g/dl (32-36); Mean Platelet Volume 9.7 fl (7.5-11.0); Monocyte (Absolute #) 0.32 (0.0-1.3); Neutrophil % 57.2 % (36.0-66.0); Platelet Count 180 K/mm3 (150-450); Red Blood Count 3.47 M/mm3 (4.1-5.4); Red Cell Distribution Width 12.9 % (11.5-14.0); White Blood Count 3.6 K/mm3 (4.0-10.5)
[2021-03-13 06:49] LABS: ANION GAP 9.5 MEQ/L (5-15); BLOOD UREA NITROGEN 9 mg/dL (7-17); CHLORIDE 100 mmol/L (98-107); Calcium 8.4 mg/dL (8.4-10.2); Carbon Dioxide 26 mmol/L (22-30); Creatinine 1 0.44 mg/dL (0.52-1.04); EST GLOMERULAR FILTRATION RATE > 60.0 ML/MIN; Glucose 88 mg/dL (74-106); Potassium 3.9 mmol/L (3.5-5.1); SODIUM 131 mmol/L (137-145)
--- NOTE | 2021-03-13 08:55 | PCM.HP ---
History of Present Illness - Chief Complaint Chief Complaint: TIA History of Present Illness: is a 75 year old female who states she was at a hog roast last evening and drank a couple of glasses of wine, while visiting things became "fuzzy" and she was less responsive, she broke out in a sweat and was confused, she did not lose consciousness. has had similar episode in the past and diagnosed with a TIA, she has no numbness, tingling, weakness or paresthesias, she actually feels normal today and denies any problems or symptoms. - Review of Systems Constitutional: No Fever, No Chills Respiratory: No Cough, No Short Of Breath Cardiac: No Chest Pain, No Palpitations, No Syncope Abdominal/Gastrointestinal: No Abdominal Pain, No Nausea, No Vomiting, No Diarrhea Genitourinary Symptoms: No Dysuria All Other Systems: Reviewed and Negative Medications & Allergies Home Medications: Home Medication List Aspirin [Nakul Chewable Aspirin] 81 mg PO DAILY 03/13/21 [History Confirmed 03/13/21] Metoprolol Tartrate 25 mg [Lopressor 25MG Tab] 25 mg PO DAILY 03/13/21 [History Confirmed 03/13/21] lisinopriL [Zestril] 2.5 mg PO DAILY 03/13/21 [History Confirmed 03/13/21] Allergies/Adverse Reactions: Allergies Allergy/AdvReac Type Severity Reaction Status Date / Time Sulfa (Sulfonamide Allergy Mild Hives Verified 03/13/21 01:00 Antibiotics) - Past Medical History Past Medical History: Yes Neurological History: TIA ENT History: No Pertinent History Cardiac History: Hypertension Respiratory History: No Pertinent History Endocrine Medical History: No Pertinent History Musculoskelatal History: Osteoporosis GI Medical History: No Pertinent History History: No Pertinent History Pyscho-Social History: No Pertinent History Reproductive Disorders: Breast Cancer Comment: Breast CA of the left breast with lumpectomy and lymph node removal. (no sticks and or BP on the left arm sign placed above pt's bed.) Chemo and radiation. - Female History Are you now?: No - Past Surgical History Past Surgical History: Yes - Social History Smoking Status: Never smoker Exposure to second hand smoke: No Alcohol: Daily Drug Use: none - Physical Exam Vital Signs: Vital Signs - 24 hr Temp Pulse Resp BP Pulse Ox 03/13/21 08:00 98 F 84 18 133/63 100 03/13/21 04:00 97.8 F 82 18 121/65 97 03/13/21 01:13 97.8 F 75 20 146/69 98 03/13/21 00:30 84 18 125/62 98 03/13/21 00:00 86 16 123/61 98 03/12/21 23:00 86 16 123/61 98 03/12/21 22:00 85 16 132/80 98 03/12/21 20:05 80 16 117/59 99 03/12/21 19:04 100 03/12/21 18:50 66 20 137/69 99 General Appearance: no apparent distress, alert Neurologic Exam: alert, oriented x 3, cooperative, normal mood/affect, nml cerebellar function, nml station & gait, sensation nml, No motor deficits Respiratory Exam: normal breath sounds, lungs clear, No respiratory distress Cardiovascular Exam: regular rate/rhythm, normal heart sounds, normal peripheral pulses Gastrointestinal/Abdomen Exam: soft, normal bowel sounds, No tenderness, No mass Extremity Exam: normal inspection, normal range of motion, pelvis stable Skin Exam: normal color, warm, dry, No rash Results - Labs Lab/Micro Results: Lab Results-Last 24 Hours 03/12/21 03/12/21 03/12/21 Range/Units 19:04 19:07 19:07 WBC 5.5 (4.0-10.5) K/mm3 RBC 3.85 L (4.1-5.4) M/mm3 Hgb 12.3 (12.0-16.0) gm/dl Hct 37.5 (35-47) % MCV 97.4 (78-100) fl MCH 31.9 (26-32) pg MCHC 32.8 (32-36) g/dl RDW 12.8 (11.5-14.0) % Plt Count 247 (150-450) K/mm3 MPV 9.8 (7.5-11.0) fl Gran % 50.0 (36.0-66.0) % Eos # (Auto) 0.12 (0-0.5) Absolute Lymphs (auto) 2.12 (1.0-4.6) Absolute Monos (auto) 0.49 (0.0-1.3) Lymphocytes % 38.5 (24.0-44.0) % Monocytes % 8.9 (0.0-12.0) % Eosinophils % 2.2 (0.00-5.0) % Basophils % 0.4 (0.0-0.4) % Absolute Granulocytes 2.75 (1.4-6.9) Basophils # 0.02 (0-0.4) PT (9.4-12.5) SECONDS INR (0.8-3.0) Sodium 131 L (137-145) mmol/L Potassium 3.2 L (3.5-5.1) mmol/L Chloride 97 L (98-107) mmol/L Carbon Dioxide 22 (22-30) mmol/L Anion Gap 15.3 H (5-15) MEQ/L BUN 8 (7-17) mg/dL Creatinine 0.77 (0.52-1.04) mg/dL Estimated GFR > 60.0 ML/MIN Glucose 115 H (74-106) mg/dL Calcium 8.9 (8.4-10.2) mg/dL Total Bilirubin 0.30 (0.2-1.3) mg/dL AST 29 (14-36) U/L ALT 11 (0-35) U/L Alkaline Phosphatase 34 L (38-126) U/L Serum Total Protein 6.9 (6.3-8.2) g/dL Albumin 4.5 (3.5-5.0) g/dL Urine Color YELLOW (YELLOW) Urine Appearance CLEAR (CLEAR) Urine pH 6.0 (5-6) Ur Specific [place] 1.006 (1.005-1.025) Urine Protein NEGATIVE (Negative) Urine Ketones TRACE (NEGATIVE) Urine Blood MODERATE (0-5) [place] Urine Nitrite NEGATIVE (NEGATIVE) Urine Bilirubin NEGATIVE (NEGATIVE) Urine Urobilinogen NEGATIVE (0-1) mg/dL Ur Leukocyte Esterase NEGATIVE (NEGATIVE) Urine WBC (Auto) 0-2 (0-5) /HPF Urine RBC (Auto) 3-5 (0-2) /HPF U Epithel Cells (Auto) NONE (FEW) /HPF Urine Bacteria (Auto) NONE SEEN (NEGATIVE) /HPF Urine Culture Reflexed ORDERED SEPARATELY (NO) Urine Glucose NEGATIVE (NEGATIVE) mg/dL Urine Opiates Level (NEGATIVE) Ur Methadone (NEGATIVE) Urine Barbiturates (NEGATIVE) Ur Phencyclidine (PCP) (NEGATIVE) Urine Amphetamine (NEGATIVE) U Benzodiazepine Level (NEGATIVE) Urine Cocaine (NEGATIVE) Urine Marijuana (THC) (NEGATIVE) Ethyl Alcohol (0-10) mg/dL SARS-CoV-2 (PCR) (NEGATIVE) 03/12/21 03/12/21 03/12/21 Range/Units 19:07 19:07 19:23 WBC (4.0-10.5) K/mm3 RBC (4.1-5.4) M/mm3 Hgb (12.0-16.0) gm/dl Hct (35-47) % MCV (78-100) fl MCH (26-32) pg MCHC (32-36) g/dl RDW (11.5-14.0) % Plt Count (150-450) K/mm3 MPV (7.5-11.0) fl Gran % (36.0-66.0) % Eos # (Auto) (0-0.5) Absolute Lymphs (auto) (1.0-4.6) Absolute Monos (auto) (0.0-1.3) Lymphocytes % (24.0-44.0) % Monocytes % (0.0-12.0) % Eosinophils % (0.00-5.0) % Basophils % (0.0-0.4) % Absolute Granulocytes (1.4-6.9) Basophils # (0-0.4) PT 10.7 (9.4-12.5) SECONDS INR 0.91 (0.8-3.0) Sodium (137-145) mmol/L Potassium (3.5-5.1) mmol/L Chloride (98-107) mmol/L Carbon Dioxide (22-30) mmol/L Anion Gap (5-15) MEQ/L BUN (7-17) mg/dL Creatinine (0.52-1.04) mg/dL Estimated GFR ML/MIN Glucose (74-106) mg/dL Calcium (8.4-10.2) mg/dL Total Bilirubin (0.2-1.3) mg/dL AST (14-36) U/L ALT (0-35) U/L Alkaline Phosphatase (38-126) U/L Serum Total Protein (6.3-8.2) g/dL Albumin (3.5-5.0) g/dL Urine Color (YELLOW) Urine Appearance (CLEAR) Urine pH (5-6) Ur Specific [place] (1.005-1.025) Urine Protein (Negative) Urine Ketones (NEGATIVE) Urine Blood (0-5) [place] Urine Nitrite (NEGATIVE) Urine Bilirubin (NEGATIVE) Urine Urobilinogen (0-1) mg/dL Ur Leukocyte Esterase (NEGATIVE) Urine WBC (Auto) (0-5) /HPF Urine RBC (Auto) (0-2) /HPF U Epithel Cells (Auto) (FEW) /HPF Urine Bacteria (Auto) (NEGATIVE) /HPF Urine Culture Reflexed (NO) Urine Glucose (NEGATIVE) mg/dL Urine Opiates Level NEGATIVE (NEGATIVE) Ur Methadone NEGATIVE (NEGATIVE) Urine Barbiturates NEGATIVE (NEGATIVE) Ur Phencyclidine (PCP) NEGATIVE (NEGATIVE) Urine Amphetamine NEGATIVE (NEGATIVE) U Benzodiazepine Level NEGATIVE (NEGATIVE) Urine Cocaine NEGATIVE (NEGATIVE) Urine Marijuana (THC) NEGATIVE (NEGATIVE) Ethyl Alcohol 94 H (0-10) mg/dL SARS-CoV-2 (PCR) (NEGATIVE) 03/12/21 03/13/21 03/13/21 Range/Units 22:08 05:49 05:49 WBC 3.6 L (4.0-10.5) K/mm3 RBC 3.47 L (4.1-5.4) M/mm3 Hgb 11.1 L (12.0-16.0) gm/dl Hct 34.0 L (35-47) % MCV 98.0 (78-100) fl MCH 32.0 (26-32) pg MCHC 32.6 (32-36) g/dl RDW 12.9 (11.5-14.0) % Plt Count 180 (150-450) K/mm3 MPV 9.7 (7.5-11.0) fl Gran % 57.2 (36.0-66.0) % Eos # (Auto) 0.03 (0-0.5) Absolute Lymphs (auto) 1.16 (1.0-4.6) Absolute Monos (auto) 0.32 (0.0-1.3) Lymphocytes % 32.7 (24.0-44.0) % Monocytes % 9.0 (0.0-12.0) % Eosinophils % 0.8 (0.00-5.0) % Basophils % 0.3 (0.0-0.4) % Absolute Granulocytes 2.03 (1.4-6.9) Basophils # 0.01 (0-0.4) PT (9.4-12.5) SECONDS INR (0.8-3.0) Sodium 131 L (137-145) mmol/L Potassium 3.9 D (3.5-5.1) mmol/L Chloride 100 (98-107) mmol/L Carbon Dioxide 26 (22-30) mmol/L Anion Gap 9.5 (5-15) MEQ/L BUN 9 (7-17) mg/dL Creatinine 0.44 L (0.52-1.04) mg/dL Estimated GFR > 60.0 ML/MIN Glucose 88 (74-106) mg/dL Calcium 8.4 (8.4-10.2) mg/dL Total Bilirubin (0.2-1.3) mg/dL AST (14-36) U/L ALT (0-35) U/L Alkaline Phosphatase (38-126) U/L Serum Total Protein (6.3-8.2) g/dL Albumin (3.5-5.0) g/dL Urine Color (YELLOW) Urine Appearance (CLEAR) Urine pH (5-6) Ur Specific [place] (1.005-1.025) Urine Protein (Negative) Urine Ketones (NEGATIVE) Urine Blood (0-5) [place] Urine Nitrite (NEGATIVE) Urine Bilirubin (NEGATIVE) Urine Urobilinogen (0-1) mg/dL Ur Leukocyte Esterase (NEGATIVE) Urine WBC (Auto) (0-5) /HPF Urine RBC (Auto) (0-2) /HPF U Epithel Cells (Auto) (FEW) /HPF Urine Bacteria (Auto) (NEGATIVE) /HPF Urine Culture Reflexed (NO) Urine Glucose (NEGATIVE) mg/dL Urine Opiates Level (NEGATIVE) Ur Methadone (NEGATIVE) Urine Barbiturates (NEGATIVE) Ur Phencyclidine (PCP) (NEGATIVE) Urine Amphetamine (NEGATIVE) U Benzodiazepine Level (NEGATIVE) Urine Cocaine (NEGATIVE) Urine Marijuana (THC) (NEGATIVE) Ethyl Alcohol (0-10) mg/dL SARS-CoV-2 (PCR) NEGATIVE (NEGATIVE) Accuchecks Date 03/12/21 Time 19:08 - Radiology Impressions Radiology Exams & Impressions: Radiology Procedures Category Date Time Status CAROTID BILATERAL [US] Routine Exams 03/13/21 Ordered HEAD WITHOUT CONTRAST [CT] Stat Exams 03/12/21 19:02 Taken MRI BRAIN WITH CONTRAST [MRI] Routine Exams 03/13/21 01:06 Ordered MRI C-SPINE WITH CONTRAST [MRI] Routine Exams 03/13/21 01:06 Ordered Assessment/Plan (1) TIA (transient ischemic attack) Current Visit: Yes Status: Acute Assessment & Plan: imaging with MRA brain and neck pending per teleneuro recommendation, continue aspirin 325mg daily, recommend imaging then plavix likely. symptoms are unclear to be TIA in my opinion and the patient was not hypertensive when she arrived. Code(s): G45.9 - TRANSIENT CEREBRAL ISCHEMIC ATTACK, UNSPECIFIED (2) Near syncope Current Visit: Yes Status: Acute Assessment & Plan: check troponin and echo (3) Alcohol intoxication Current Visit: Yes Status: Acute
[2021-03-13] MEDS: Ecotrin 325 MG PO SCH (10:25)
[2021-03-13] MEDS: VITAMIN B-1 100 MG PO SCH (10:25)
[2021-03-13] MEDS: FOLATE 1 MG PO SCH (10:25)
[2021-03-13] MEDS: Lopressor 25MG Tab PO SCH (10:25)
[2021-03-13] MEDS: Zestril 5 MG PO SCH (10:25)
[2021-03-14 05:40] LABS: Absolute Neutrophil Ct (ANC) 1.79 (1.4-6.9); BASOPHIL % 0.3 % (0.0-0.4); Basophil (Absolute #) 0.01 (0-0.4); Eosinophil (Absolute #) 0.13 (0-0.5); Hematocrit 37.2 % (35-47); Hemoglobin 11.9 gm/dl (12.0-16.0); Lymphocyte (Absolute #) 0.98 (1.0-4.6); Lymphocytes % 30.3 % (24.0-44.0); Mean Cell Volume 99.2 fl (78-100); Mean Corpuscular Hemoglobin 31.7 pg (26-32); Mean Platelet Volume 9.6 fl (7.5-11.0); Monocyte (Absolute #) 0.32 (0.0-1.3); Monocytes % 9.9 % (0.0-12.0); Neutrophil % 55.5 % (36.0-66.0); Platelet Count 163 K/mm3 (150-450); Red Blood Count 3.75 M/mm3 (4.1-5.4); Red Cell Distribution Width 13.1 % (11.5-14.0); White Blood Count 3.2 K/mm3 (4.0-10.5)
[2021-03-14 06:19] LABS: ANION GAP 8.9 MEQ/L (5-15); BLOOD UREA NITROGEN 11 mg/dL (7-17); CHLORIDE 103 mmol/L (98-107); Calcium 8.5 mg/dL (8.4-10.2); Carbon Dioxide 25 mmol/L (22-30); Creatinine 1 0.44 mg/dL (0.52-1.04); EST GLOMERULAR FILTRATION RATE > 60.0 ML/MIN; Glucose 80 mg/dL (74-106); Potassium 3.7 mmol/L (3.5-5.1); SODIUM 134 mmol/L (137-145)
--- NOTE | 2021-03-14 08:36 | PCM.DS ---
Discharge Summary Date of Admission: 03/12/21 23:52 Admitting Physician: CLAY QUINTANA Consults: Consults on Case 03/12/21 20:54 Tele-Health Consult ROUTINE Primary Care Provider: CLAY QUINTANA Allergies Allergies Sulfa (Sulfonamide Antibiotics) Allergy (Intermediate, Verified 03/14/21 07:04) Swelling of Eyelids Hospital Summary - Hospital Course Hospital Course: patient admitted with confusion and concern of TIA, also had some alcohol that evening. upon arrival all symptoms are resolved, she has no headache, no visual changes, no numbness, tingling, weakness or paresthesias. no confusion, teleneuro advised aspring 325mg and MRI/MRA which are pending, patient will be released after these are done today. - Vitals & Intake/Output Vital Signs: Vital Signs Temperature 98.3 F 03/14/21 07:00 Pulse Rate 84 03/14/21 07:00 Respiratory Rate 14 03/14/21 07:00 Blood Pressure 171/84 03/14/21 07:00 O2 Sat by Pulse Oximetry 95 03/14/21 07:00 Intake & Output: Intake & Output 03/11/21 03/12/21 03/13/21 03/14/21 11:59 11:59 11:59 11:59 Intake Total 668 1974 Output Total 1400 Balance -732 1974 Weight 57.2 kg - Lab Result Diagrams: 03/14/21 04:40 03/14/21 04:40 Lab Results-Last 24 Hrs: Lab Results-Last 24 Hours 03/13/21 03/13/21 03/14/21 Range/Units 09:33 09:33 04:40 WBC 3.2 L (4.0-10.5) K/mm3 RBC 3.75 L (4.1-5.4) M/mm3 Hgb 11.9 L (12.0-16.0) gm/dl Hct 37.2 (35-47) % MCV 99.2 (78-100) fl MCH 31.7 (26-32) pg MCHC 32.0 (32-36) g/dl RDW 13.1 (11.5-14.0) % Plt Count 163 (150-450) K/mm3 MPV 9.6 (7.5-11.0) fl Gran % 55.5 (36.0-66.0) % Eos # (Auto) 0.13 (0-0.5) Absolute Lymphs (auto) 0.98 L (1.0-4.6) Absolute Monos (auto) 0.32 (0.0-1.3) Lymphocytes % 30.3 (24.0-44.0) % Monocytes % 9.9 (0.0-12.0) % Eosinophils % 4.0 (0.00-5.0) % Basophils % 0.3 (0.0-0.4) % Absolute Granulocytes 1.79 (1.4-6.9) Basophils # 0.01 (0-0.4) Sodium (137-145) mmol/L Potassium (3.5-5.1) mmol/L Chloride (98-107) mmol/L Carbon Dioxide (22-30) mmol/L Anion Gap (5-15) MEQ/L BUN (7-17) mg/dL Creatinine (0.52-1.04) mg/dL Estimated GFR ML/MIN Glucose (74-106) mg/dL Calcium (8.4-10.2) mg/dL Troponin I < 0.012 (0.000-0.034) ng/mL TSH 3rd Generation 0.805 (0.47-4.68) mIU/L 03/14/21 03/14/21 Range/Units 04:40 04:40 WBC (4.0-10.5) K/mm3 RBC (4.1-5.4) M/mm3 Hgb (12.0-16.0) gm/dl Hct (35-47) % MCV (78-100) fl MCH (26-32) pg MCHC (32-36) g/dl RDW (11.5-14.0) % Plt Count (150-450) K/mm3 MPV (7.5-11.0) fl Gran % (36.0-66.0) % Eos # (Auto) (0-0.5) Absolute Lymphs (auto) (1.0-4.6) Absolute Monos (auto) (0.0-1.3) Lymphocytes % (24.0-44.0) % Monocytes % (0.0-12.0) % Eosinophils % (0.00-5.0) % Basophils % (0.0-0.4) % Absolute Granulocytes (1.4-6.9) Basophils # (0-0.4) Sodium 134 L (137-145) mmol/L Potassium 3.7 (3.5-5.1) mmol/L Chloride 103 (98-107) mmol/L Carbon Dioxide 25 (22-30) mmol/L Anion Gap 8.9 (5-15) MEQ/L BUN 11 (7-17) mg/dL Creatinine 0.44 L (0.52-1.04) mg/dL Estimated GFR > 60.0 ML/MIN Glucose 80 (74-106) mg/dL Calcium 8.5 (8.4-10.2) mg/dL Troponin I < 0.012 (0.000-0.034) ng/mL TSH 3rd Generation (0.47-4.68) mIU/L Micro Results-Entire Visit: Microbiology 03/12/21 19:04 Urine Culture - Preliminary Catherized NO GROWTH TO DATE - Radiology Exams Ordered Rad Exams-Entire Visit: Radiology Procedures Category Date Time Status CAROTID BILATERAL [US] Routine Exams 03/14/21 Ordered ECHO W/2D AND DOPPLER [US] Routine Exams 03/14/21 Ordered HEAD WITHOUT CONTRAST [CT] Stat Exams 03/12/21 19:02 Taken MRI BRAIN W/O CONTRAST [MRI] Routine Exams 03/14/21 01:06 Ordered MRI C-SPINE W/O CONTRAST [MRI] Routine Exams 03/14/21 01:06 Ordered Discharge Exam General Appearance: no apparent distress, alert Neurologic Exam: alert, oriented x 3, cooperative, normal mood/affect, nml cerebellar function, sensation nml, No motor deficits Eye Exam: PERRL, EOMI, eyes nml inspection Respiratory Exam: normal breath sounds, lungs clear, No respiratory distress Cardiovascular Exam: regular rate/rhythm, normal heart sounds Gastrointestinal/Abdomen Exam: soft, No tenderness, No mass Extremity Exam: normal inspection, normal range of motion Skin Exam: normal color, warm, dry Final Diagnosis/Problem List - Final Discharge Diagnosis/Problem (1) TIA (transient ischemic attack) Current Visit: Yes Status: Acute Code(s): G45.9 - TRANSIENT CEREBRAL ISCHEMIC ATTACK, UNSPECIFIED (2) Alcohol intoxication Current Visit: Yes Status: Acute (3) Near syncope Current Visit: Yes Status: Acute - Discharge Disposition: Home, Self-Care Condition: Stable Prescriptions: New Aspirin EC 325 mg [Ecotrin 325 MG] 325 mg PO QAM #30 tablet.ec Continue lisinopriL [Lisinopril] 2.5 mg PO DAILY Cholecalciferol (Vitamin D3) [Vitamin D3] 250 mcg PO DAILY lisinopriL [Zestril] 2.5 mg PO DAILY Metoprolol Tartrate 25 mg [Lopressor 25MG Tab] 25 mg PO DAILY Discontinued Aspirin 81 gm Chew [Baby Aspirin 81 mg Chew] 81 mg PO DAILY Aspirin [Nakul Chewable Aspirin] 81 mg PO DAILY Follow up with: CLAY QUINTANA [Primary Care Provider] - 1 Week Forms: Patient Portal Information
--- NOTE | 2021-03-14 09:11 | XRAY ---
Indication: Left-sided weakness. Stroke symptoms. Multiple contiguous axial images obtained through the head without contrast. Comparison: December 29, 2019. There is again age-appropriate global atrophy, mild periventricular degenerative micro-ischemia bilaterally, and left external capsule remote lacunar infarct. No acute intracranial hemorrhage, abnormal extra-axial fluid collection, or mass effect. Fourth ventricle is midline without hydrocephalus. Bony calvarium intact. Visualized paranasal sinuses and mastoid air cells are clear. Impression: Again nonacute senile brain with remote left external capsule lacunar infarct. Comment: Preliminary interpretation was made by [facility]. No critical discrepancy.
[2021-03-14] MEDS: Zestril 5 MG PO SCH (09:21)
[2021-03-14] MEDS: FOLATE 1 MG PO SCH (09:21)
[2021-03-14] MEDS: VITAMIN B-1 100 MG PO SCH (09:21)
[2021-03-14] MEDS: Ecotrin 325 MG PO SCH (09:21)
[2021-03-14] MEDS: Lopressor 25MG Tab PO SCH (09:22)
[2021-03-14] MEDS ORDERED: NON-FORMULARY ITEM (Lisinopril [Zestril] 2.5 MG) PO SCH (10:00)
--- NOTE | 2021-03-14 12:02 | XRAY ---
Exam: Bilateral duplex Doppler carotid ultrasound from 03/14/2021. Comparison: Bilateral duplex Doppler carotid ultrasound from 12/25/2019. Indication: TIA. Technique: Rosario scale images, color blood flow images, and Doppler tracings with velocity measurements in centimeters per second were obtained bilaterally. Findings: On the right side, there is minimal intimal thickening within the common carotid artery. There is minimal calcific plaque about the carotid bulb extending into the origin of the internal carotid artery. Both the external carotid artery and distal internal carotid artery are quite tortuous in course. Peak systolic flow velocities in centimeters per second measure 135 within the proximal common carotid artery, 55 and 93 within the proximal and distal internal carotid artery, and 99 within the external carotid artery. Peak systolic ICA to CCA velocity ratio is 0.7 which is not elevated. The right vertebral artery reveals antegrade flow with a peak systolic flow velocity of 70.1 cm/s. On the left side, there is some minimal intimal thickening and vascular calcifications seen. Mild fibrocalcific plaque is seen at the posterior carotid bulb. The distal left internal carotid artery is tortuous. Peak systolic flow velocities in centimeters per second measure 82.4 within the proximal common carotid artery, 76 and 87 within the proximal and distal internal carotid artery, and 72 within the external carotid artery. Peak systolic flow velocity ratio between the left ICA and CCA is 1.1. This is not significantly elevated. The left vertebral artery reveals antegrade flow with peak systolic flow velocity of 64 cm/s. Impression: 1. No hemodynamically significant stenosis of 50% or greater diameter reduction is seen within either visualized common carotid artery or internal carotid artery. 2. The carotid vessels are tortuous, as discussed above. 3. Both vertebral arteries reveal antegrade flow.
[2021-03-14 17:05] VITALS: BP 188/86; PULSE 68; O2SAT 94
--- NOTE | 2021-03-15 08:04 | XRAY ---
Exam: MRI of the cervical spine without IV contrast from 03/14/2021. Comparison: None. Indication: 75-year-old female with TIA. Technique: Multiplanar, multisequence MRI imaging of the cervical spine was obtained without IV contrast, per protocol. Findings: A normal lower cervical lordosis is seen. There appears to be moderate degenerative disc disease at C5-C6 and mild degenerative disc disease at C6-C7. Small anterior and posterior vertebral endplate spurs are seen at both C5-C6 and C6-C7. No bone marrow replacing process is seen. There is no evidence of cerebellar ectopia. The cervical cord appears of normal diameter and signal intensity. The C2-C3, C3-C4, and C4-C5 interspace levels appear essentially unremarkable. No focal disc herniation or spinal stenosis is seen at these 3 disc levels. The neural foramen are patent bilaterally. At C5-C6, there appears to be a left posterior lateral disc/osteophyte complex which mildly indents the ventral aspect of the subarachnoid space. This causes some decrease in the AP diameter of the spinal sac on the sagittal images. This measures about 7.5 mm in AP distance on sagittal image #6 of series 300. I believe there is mild to moderate narrowing of both C5-C6 neural foramen. At C6-C7, there is mild posterior bulging of the disc. AP dimension of the spinal sac is about 10.0 mm on sagittal image #6 of series 300. No focal disc herniation or significant spinal stenosis is seen. I believe there is mild narrowing of the left C6-C7 neural foramen. The C7-T1 interspace level appears unremarkable. Impression: 1. Moderate degenerative disc disease at C5-C6 and mild degenerative disc disease at C6-C7 are seen. 2. There is a left posterior lateral disc/osteophyte complex at C5-C6 which mildly indents the ventral subarachnoid space. 3. In addition, there appears to be moderate central canal spinal stenosis extending from the lower aspect of C5 down to the mid aspect of C6. See above. Spinal cord diameter and signal intensity appear unremarkable. 4. I believe there is mild to moderate narrowing of both C5-C6 neural foramen and the left C6-C7 neural foramen.
--- NOTE | 2021-03-15 08:06 | XRAY ---
Exam: MRI of the brain without IV contrast 03/14/2021. Comparison: CT of the head without IV contrast from 03/12/2021. Indication: 75-year-old female passed out a couple nights ago; history of TIAs and old stroke; history of recent left-sided weakness. Technique: Multiplanar, multisequence MR I imaging of the brain was obtained without IV contrast, per protocol. Findings: The ventricles are within normal size for age. There is moderate diffuse prominence of the cortical sulci suggesting some cerebral cortical atrophic changes. Bilateral periventricular and subcortical white matter changes are noted consistent with mild to moderate chronic small vessel ischemic white matter disease. There appear to be some subtle low signal attenuation densities within the left external capsule consistent with remote lacunar infarct(s). More importantly, the diffusion-weighted images reveal no focal areas of restricted diffusion to suggest an acute or subacute infarct. I see no obvious intracranial bleed. There is some prominence of the extra-axial spaces bilaterally which I believe is secondary to atrophy. The visualized portions of the [place] appear grossly unremarkable. There is no cerebellar ectopia. The pituitary gland appears grossly unremarkable on the midline T2 FLAIR images. The seventh and eighth cranial nerve complexes appear grossly unremarkable. I see no significant abnormality of the mastoids, paranasal sinuses, or orbits. Impression: 1. Mild generalized cerebral cortical atrophy. I also note chronic small vessel ischemic white matter changes within the periventricular and subcortical white matter. This is unchanged from the prior CT examination of the head without IV contrast from 03/12/2021. 2. There appear to be some low signal foci within the left external capsule which I believe are due to subtle remote lacunar infarct(s) is at the radial aspect the radial. 3. No foci of restricted diffusion are seen on the diffusion-weighted images to suggest an acute or subacute infarct.
== END 2021-03-14 17:50 | disposition left against medical advice (07) | DRG 69 ==
LOC: ED 18:42 → EDBD 18:42 → MED SURG 23:52 → MERGE 23:52
PROVIDERS: ADMIT Family Medicine; ATTEND Family Medicine
DX: G45.9 Transient cerebral ischemic attack, unspecified (principal); F10.929 Alcohol use, unspecified with intoxication, unspecified; R55 Syncope and collapse; Z79.899 Other long term (current) drug therapy; I10 Essential (primary) hypertension; Z20.828 Contact with and (suspected) exposure to other viral communicable diseases; Z79.82 Long term (current) use of aspirin; Z85.3 Personal history of malignant neoplasm of breast
CPT/HCPCS: 36000; 36415; 51702; 70450; 70551; 72141; 80048; 80053; 80307; 81001; 84443; 84484; 85025; 85610; 87086; 93005; 93041; 93306; 93880; 94760; 99285; 99291; G0480; Q3014; U0003; A9270-GY

== ENCOUNTER 2023-09-13 20:10 | Emergency (ER) | payer MEDICARE, OTHER ==
[2023-09-13 21:07] LABS: Absolute Neutrophil Ct (ANC) 8.01 x10^3/uL (1.4-6.9); BASOPHIL % 0.2 % (0.0-0.4); Basophil (Absolute #) 0.02 x10^3/uL (0-0.4); Eosinophil % 0.8 % (0.00-5.0); Eosinophil (Absolute #) 0.07 x10^3/uL (0-0.5); Hematocrit 37.4 % (35-47); Hemoglobin 12.6 g/dL (12.0-16.0); IMMATURE GRAN # 0.04 x10^3u/L (0.00-0.03); IMMATURE GRAN % 0.4 % (0.00-0.4); Lymphocyte (Absolute #) 0.39 x10^3/uL (1.0-4.6); Lymphocytes % 4.3 % (24.0-44.0); Mean Cell Volume 95.9 fL (78-100); Mean Corpuscular Hemoglobin 32.3 pg (26-32); Mean Corpuscular Hgb Concent. 33.7 g/dL (32-36); Mean Platelet Volume 10.2 fL (7.5-11.0); Monocyte (Absolute #) 0.45 x10^3/uL (0.0-1.3); Neutrophil % 89.3 % (36.0-66.0); Platelet Count 180 x10^3/uL (150-450); Red Cell Distribution Width 12.7 % (11.5-14.0)
[2023-09-13 21:22] LABS: ALBUMIN 4.4 g/dL (3.5-5.0); ANION GAP 11.4 MEQ/L (5-15); BILIRUBIN,TOTAL 1.3 mg/dL (0.2-1.3); Creatinine 1 0.43 mg/dL (0.52-1.04); EST GLOMERULAR FILTRATION RATE 98.9 ML/MIN; Potassium 3.5 mmol/L (3.5-5.1)
[2023-09-13 21:23] LABS: ADD URINE CULTURE? YES (NO); Appearance Clear (Clear); Bacteria None Seen /HPF (None Seen); Bilirubin Negative (Negative); Blood Trace (Negative); Epithelial Cells None Seen /HPF (None Seen); Glucose, Urine Negative (Negative); Hyaline Casts NONE SEEN /LPF (0-2); Ketones 15 (Negative); Leukocyte Esterase Negative (Negative); Nitrite Negative (Negative); Ph 7.5 (4.6-8.0); Protein,Urine Dip Trace (Negative); Urobilinogen 0.2 mg/dL (0.2); WBC 0-2 /HPF (0-5)
--- NOTE | 2023-09-13 23:02 | XRAY ---
CLINICAL HISTORY:weakness COMPARISON:12/30/2019. TECHNIQUE:Axial non-contrast CT scan of the brain was performed from the skull base to the high parietal region. FINDINGS: Chronic lacunar infarct noted in left [place] region. The ventricular system, cortical sulci and basal cisterns are prominent and consistent with senile changes. Ill defined hypodensity noted in subcortical and periventricular white matter, suggestive of chronic microvascular ischemic changes The rest of visualized brain parenchyma shows a normal appearance. Normal CT appearance of the posterior fossa structures namely the cerebellar hemispheres, brainstem and cerebellar peduncles. The IACs are unremarkable. The cerebello-pontine angles are clear. The osseous structures in the skull base are unremarkable. The scanned paranasal sinuses are clear. IMPRESSION: 1. No acute abnormality was detected in the CT brain, within the limitations of the plain study. Early changes of stroke may not be detected on a CT scan. If strong clinical suspicion of stroke then suggest MRI with diffusion-weighted imaging. 2. Chronic lacunar infarct in left [place] region. 3. Age-related changes with chronic microvascular ischemic angiopathy. 4. MR comparison 12/30/2019, concur with findings of cortical atrophy and microvascular changes. Electronically Signed by: Santiago Arthur MD. (09/13/2023 22:58:23 EST)
--- NOTE | 2023-09-13 23:18 | ERPHSYRPT ---
- History of Present Illness Source: patient, EMS Patient Subjective Stated Complaint: pt here for weakness and UTI. pt was placed on antiboitcs yesterday. she states she has frequent UTI. she lives alone and is not able to walk to the bathroom Triage Nursing Assessment: pt alert, resp easy, skin w/d/p.abd soft, weak.unable to undress self. moves all ext well, slight edema to lower legs Hx Tetanus, Diphtheria Vaccination/Date Given: No Hx Influenza Vaccination/Date Given: Yes Hx Pneumococcal Vaccination/Date Given: Yes Immunizations Up to Date: Yes - History of Present Illness Time Seen by Provider: 09/13/23 20:19 Physician History: 78-year-old female with history of chronic back pain, recent UTI on antibiotics outpatient is brought in the ER after she was having a difficulty standing up from a sitting position to go use restroom. Patient reports her both legs are giving away with standing. She did not fall. She denies any numbness or tingling in the lower extremities but generalized weakness. She is able to flex and extend her extremities at knee ankle and hip but having difficulty weightbearing. Denies any fall or trauma. No abdominal pain nausea or vomiting. Patient does have incontinence of urine on presentation in the ER. Does have history of recurrent UTI. (CHARLES ALCALA) Allergies/Adverse Reactions: Sulfa (Sulfonamide Antibiotics) Allergy (Intermediate, Verified 03/14/21 07:04) Swelling of Eyelids Home Medications: Cholecalciferol (Vitamin D3) [Vitamin D3] 250 mcg PO DAILY 01/21/21 [History] Aspirin EC 325 mg [Ecotrin 325 MG] 81 mg PO QAM 09/13/23 [History] Potassium Citrate [Potassium Citrate ER] 10 meq PO DAILY 09/13/23 [History] Travel Risk - International Travel Have you traveled outside of the country in past 3 weeks: No - Coronavirus Screening Are you exhibiting any of the following symptoms?: Yes Symptoms: Fever Close contact with a COVID-19 positive Pt in past 14-21 Days: No - Vaccine Status Have you recieved a Covid-19 vaccination: No Editorial Manager: Moderna - Vaccination Dates Date of 2cond Vaccination (if applicable): 02/2021 - Review of Systems Constitutional: Fatigue, Weakness Eyes: No Symptoms Ears, Nose, & Throat: No Symptoms Respiratory: No Symptoms Cardiac: No Symptoms Abdominal/Gastrointestinal: No Symptoms Genitourinary Symptoms: Incontinence, No Flank Pain Musculoskeletal: Back Pain Skin: No Symptoms Neurological: No Symptoms Endocrine: No Symptoms Hematologic/Lymphatic: No Symptoms - Past Medical History Pertinent Past Medical History: Yes Neurological History: No Pertinent History, TIA ENT History: No Pertinent History Cardiac History: Hypertension Respiratory History: No Pertinent History Endocrine Medical History: No Pertinent History Musculoskeletal History: Arthritis, Osteoporosis GI Medical History: No Pertinent History History: No Pertinent History Psycho-Social History: No Pertinent History Female Reproductive Disorders: Breast Cancer Other Medical History: MELANOMA ,uti - Past Surgical History Past Surgical History: Yes Neuro Surgical History: No Pertinent History Cardiac: No Pertinent History Respiratory: No Pertinent History Gastrointestinal: Other Genitourinary: No Pertinent History Musculoskeletal: Orthopedic Surgery Female Surgical History: Lumpectomy, Hysterectomy, Section Other Surgical History: colonoscopy 5yrs ago, left breast lumpectomy and nodes excision 2011. Ex/bx melanoma of nose. TAILBONE REMOVED - Social History Smoking Status: Never smoker Exposure to second hand smoke: No Alcohol Use: Chronic (And daily) Drug Use: none Patient Lives Alone: No - Physical Exam General Appearance: no apparent distress, alert Eye Exam: PERRL/EOMI Ears, Nose, Throat Exam: normal ENT inspection Neck Exam: normal inspection, supple, full range of motion Respiratory Exam: normal breath sounds, lungs clear Cardiovascular Exam: normal heart sounds, tachycardia Gastrointestinal/Abdomen Exam: soft, normal bowel sounds, No tenderness Rectal Exam: other (Mild decrease in the tone. Intact 2+ patellar and Achilles/plantars downgoing on the right and 1+ on the left.) Back Exam: normal inspection, vertebral tenderness Extremity Exam: normal inspection Neurologic Exam: alert, oriented x 3, cooperative, motor deficits (More pronounced on the left as compared to right and marked limitation against gravity of the left side.) Skin Exam: normal color SpO2 Interpretation: normal SpO2: 95 O2 Delivery: Room Air - Nursing Vital Signs Nursing Vital Signs: Initial Vital Signs Temperature 100.5 F 09/13/23 20:30 Pulse Rate 115 H 09/13/23 20:30 Respiratory Rate 18 09/13/23 20:30 Blood Pressure 177/80 09/13/23 20:30 O2 Sat by Pulse Oximetry 97 09/13/23 20:30 Pain Scale Pain Intensity 0 Ordered Tests: Medication Summary Discontinued Medications Generic Name Dose Route Start Last Admin Trade Name Gino PRN Reason Stop Dose Admin Dexamethasone Sodium Phosphate 10 mg 09/13/23 23:19 09/13/23 23:43 Dexamethasone Sod Phosphate 10 Mg/Ml IV 09/13/23 23:20 10 mg STAT ONE Administration Dexamethasone Sodium Phosphate Confirm 09/13/23 23:36 Dexamethasone Sod Phosphate 10 Mg/Ml Administered 09/13/23 23:37 Dose 10 mg .ROUTE .STK-MED ONE Lab/Rad Data: Laboratory Result Diagrams 09/13/23 20:40 09/13/23 20:40 Laboratory Results 09/13/23 09/13/23 09/13/23 Range/Units 20:54 20:40 20:40 WBC (4.0-10.5) x10^3/uL RBC (4.1-5.4) x10^6/uL Hgb (12.0-16.0) g/dL Hct (35-47) % MCV (78-100) fL MCH (26-32) pg MCHC (32-36) g/dL RDW (11.5-14.0) % Plt Count (150-450) x10^3/uL MPV (7.5-11.0) fL Gran % (36.0-66.0) % Immature Gran % (Auto) (0.00-0.4) % Nucleat RBC Rel Count (0.00-0.1) % Eos # (Auto) (0-0.5) x10^3/uL Immature Gran # (Auto) (0.00-0.03) x10^3u/L Absolute Lymphs (auto) (1.0-4.6) x10^3/uL Absolute Monos (auto) (0.0-1.3) x10^3/uL Absolute Nucleated RBC (0.00-0.01) x10^3u/L Lymphocytes % (24.0-44.0) % Monocytes % (0.0-12.0) % Eosinophils % (0.00-5.0) % Basophils % (0.0-0.4) % Absolute Granulocytes (1.4-6.9) x10^3/uL Basophils # (0-0.4) x10^3/uL Sodium (137-145) mmol/L Potassium (3.5-5.1) mmol/L Chloride (98-107) mmol/L Carbon Dioxide (22-30) mmol/L Anion Gap (5-15) MEQ/L BUN (7-17) mg/dL Creatinine (0.52-1.04) mg/dL Estimated GFR ML/MIN Glucose (74-106) mg/dL Lactic Acid 0.9 (0.4-2.0) Calcium (8.4-10.2) mg/dL Total Bilirubin (0.2-1.3) mg/dL AST (14-36) U/L ALT (0-35) U/L Alkaline Phosphatase (38-126) U/L Serum Total Protein (6.3-8.2) g/dL Albumin (3.5-5.0) g/dL Lipase (23-300) U/L Procalcitonin 0.043 (0.030-0.080) ng/mL Urine Color (Yellow) Urine Appearance (Clear) Urine pH (4.6-8.0) Ur Specific [place] (1.005-1.030) Urine Protein (Negative) Urine Glucose (UA) (Negative) mg/dL Urine Ketones (Negative) Urine Blood (Negative) Urine Nitrite (Negative) Urine Bilirubin (Negative) Urine Urobilinogen (0.2) mg/dL Ur Leukocyte Esterase (Negative) U Hyaline Cast (Auto) (0-2) /LPF Urine Microscopic RBC (0-5) /HPF Urine Microscopic WBC (0-5) /HPF Ur Epithelial Cells (None Seen) /HPF Urine Bacteria (None Seen) /HPF Urine Culture Reflexed (NO) Ethyl Alcohol < 10 (0-10) mg/dL 09/13/23 09/13/23 09/13/23 Range/Units 20:40 20:40 20:31 WBC 9.0 (4.0-10.5) x10^3/uL RBC 3.90 L (4.1-5.4) x10^6/uL Hgb 12.6 (12.0-16.0) g/dL Hct 37.4 (35-47) % MCV 95.9 (78-100) fL MCH 32.3 H (26-32) pg MCHC 33.7 (32-36) g/dL RDW 12.7 (11.5-14.0) % Plt Count 180 (150-450) x10^3/uL MPV 10.2 (7.5-11.0) fL Gran % 89.3 H (36.0-66.0) % Immature Gran % (Auto) 0.4 (0.00-0.4) % Nucleat RBC Rel Count 0.0 (0.00-0.1) % Eos # (Auto) 0.07 (0-0.5) x10^3/uL Immature Gran # (Auto) 0.04 H (0.00-0.03) x10^3u/L Absolute Lymphs (auto) 0.39 L (1.0-4.6) x10^3/uL Absolute Monos (auto) 0.45 (0.0-1.3) x10^3/uL Absolute Nucleated RBC 0.00 (0.00-0.01) x10^3u/L Lymphocytes % 4.3 L (24.0-44.0) % Monocytes % 5.0 (0.0-12.0) % Eosinophils % 0.8 (0.00-5.0) % Basophils % 0.2 (0.0-0.4) % Absolute Granulocytes 8.01 H (1.4-6.9) x10^3/uL Basophils # 0.02 (0-0.4) x10^3/uL Sodium 132 L (137-145) mmol/L Potassium 3.5 (3.5-5.1) mmol/L Chloride 101 (98-107) mmol/L Carbon Dioxide 24 (22-30) mmol/L Anion Gap 11.4 (5-15) MEQ/L BUN 6 L (7-17) mg/dL Creatinine 0.43 L (0.52-1.04) mg/dL Estimated GFR 98.9 ML/MIN Glucose 124 H (74-106) mg/dL Lactic Acid (0.4-2.0) Calcium 10.0 (8.4-10.2) mg/dL Total Bilirubin 1.30 (0.2-1.3) mg/dL AST 27 (14-36) U/L ALT 17 (0-35) U/L Alkaline Phosphatase 48 (38-126) U/L Serum Total Protein 7.0 (6.3-8.2) g/dL Albumin 4.4 (3.5-5.0) g/dL Lipase 173 (23-300) U/L Procalcitonin (0.030-0.080) ng/mL Urine Color Yellow (Yellow) Urine Appearance Clear (Clear) Urine pH 7.5 (4.6-8.0) Ur Specific [place] 1.010 (1.005-1.030) Urine Protein Trace A (Negative) Urine Glucose (UA) Negative (Negative) mg/dL Urine Ketones 15 A (Negative) Urine Blood Trace (Negative) Urine Nitrite Negative (Negative) Urine Bilirubin Negative (Negative) Urine Urobilinogen 0.2 (0.2) mg/dL Ur Leukocyte Esterase Negative (Negative) U Hyaline Cast (Auto) NONE SEEN (0-2) /LPF Urine Microscopic RBC 3-5 (0-5) /HPF Urine Microscopic WBC 0-2 (0-5) /HPF Ur Epithelial Cells None Seen (None Seen) /HPF Urine Bacteria None Seen (None Seen) /HPF Urine Culture Reflexed YES (NO) Ethyl Alcohol (0-10) mg/dL - Progress Progress: improved Counseled pt/family regarding: lab results, diagnosis - Progress Progress Note: 09/14/23 07:22 Dr. Alcala transferred the care of this patient to me at shift change. It is my understanding after our discussion that if the patient can ambulate and the MRI of the lumbar spine is negative then the patient can be discharged to home with outpatient follow-up. Currently, the patient has been accepted at [facility]. However, we currently do not have any ground transportation or air transportation at this time (ZHEN DE SOUZA) 09/13/23 23:44 78-year-old is evaluated for lower extremity weakness and incontinence on presentation in the ER. Patient has a history of UTI. Patient is not in any distress. She has history of chronic back pain. Her pain is better now. I have given her fluids, obtained CT head and lumbar spine which is negative for any acute intracranial findings. CT lumbar spine showed multiple herniated disks with more pronounced on the L4/L5. She is given Decadron. She has mildly decreased rectal tone but has intact perineal sensation. 2+ reflexes on the right and 1+ on the left. Plantars downgoing. Patient is able to flex and extend but cannot have any weightbearing. I have called [facility] discussed with Dr. Kent who has reviewed CT and do not think patient CT looks follow- up pathology but did recommend getting MRI. Since [facility] is noncritical diversion and cannot except the patient, will call [facility]. She is given Decadron. 09/14/23 00:[address] Wang neurosurgery [facility] who has reviewed the CT and do not see any remarkable findings. He did recommend obtaining MRI and patient will be transferred to [facility]. 09/14/23 00:40 09/14/23 00:[address] [facility] reviewed [facility], workup and patient is accepted for transfer. Plan discussed with patient and she agrees with it. 09/14/23 06:35 I have called multiple EMS but no trucks are available for transportation. Because of weather air transportation is also not working. We have discussed with patient and daughter about the situation which they understand. At this point care is transferred to Dr. De Souza due to change in the shift. We will see if we can get an MRI here. 09/14/23 07:04 And is able to move her lower extremities much better on reevaluation without any intervention. I have discussed with Dr. Marcelino lockwood we can possibly obtain MRI here and if negative patient can be discharged with outpatient follow-up. (CHALRES ALCALA) Medical Desision Making - Discussion of managment Care discussed with:: specialist (neurosurgery Dr. Kent [facility] at 11:35 PM, Dr. Wang [facility] neurosurgery and Dr. Majano [facility]) Reviewed:: Test results, Need for additional workup Will see patient: in ED - Departure Departure Disposition: Transfer Critical Care Time: No - Departure Clinical Impression: Lower extremity weakness, Urinary incontinence Condition: Stable Referrals: VIMAL TSANG, [Primary Care Provider] - Follow up/PCP as directed
--- NOTE | 2023-09-13 23:18 | XRAY ---
CLINICAL HISTORY:lower extremities weakness COMPARISON:X-ray lumbar spine dated: 12/13/2020 TECHNIQUE:CT scan of lumbar spine done without contrast. Axial images obtained with reformatted coronal and sagittal images and submitted for interpretation. FINDINGS: Exaggeration of lumbar lordosis. Anterosuperior endplate collapse with mild anterior wedging of L1 and L3 vertebral bodies noted. Schmorl's node noted at inferior endplate of T12 vertebral body. Multilevel marginal anterior and posterior osteophytes noted. Hypertrophic facetal arthropathy noted at L4-L5 and L5-S1 levels causing neural foraminal narrowing with mild facetal arthropathy at upper lumbar levels. Intact neural arches. No definite fractures could be detected. Segmental disc analysis level by level: L1- L2: There is disc herniation causing mild narrowing of bilateral lateral recesses and neural foramina. L2- L3: There is disc herniation causing moderate narrowing of bilateral neural foramina. L3- L4: There is disc herniation causing moderate narrowing of bilateral neural foramina. L4- L5: There is disc herniation causing moderate to severe narrowing of bilateral neural foramina, possibly compressing exiting nerve roots. L5- S1: There is disc herniation causing moderate narrowing of bilateral neural foramina. No retro paraspinal soft tissue masses. No developmental canal stenosis. The sections through the lung demonstrate bibasilar fibroatelectatic changes. Extensive abdominal aortic calcification is seen. Small hiatal hernia. IMPRESSION: 1. 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 MRI is advised for better evaluation Electronically Signed by: Santiago Arthur MD. (09/13/2023 23:14:36 EST)
[2023-09-13] MEDS ORDERED: DECADRON 10MG INJ. IV ONE (23:19)
[2023-09-13] MEDS ORDERED: DECADRON 10MG INJ. ONE (23:36)
[2023-09-13 23:42] VITALS: TEMP 98.4
[2023-09-14 07:12] VITALS: RESP 16
--- NOTE | 2023-09-14 08:52 | XRAY ---
Indication: Fever and cough. UTI. Comparison: December 29, 2019 Portable chest now better inflated and slightly rotated. No focal infiltrate, consolidation, or large effusion. Heart not enlarged with new overlying electronic device. Bony thorax intact again with osteopenia and degenerative changes. Impression: Nonacute chest with chronic features.
[2023-09-14 10:33] VITALS: BP 143/80; PULSE 88
[2023-09-15 16:22] VITALS: O2SAT 95
== END 2023-09-14 10:41 | disposition short-term general hospital (02) ==
LOC: ED 20:10
DX: R32 Unspecified urinary incontinence (principal); M62.81 Muscle weakness (generalized); I10 Essential (primary) hypertension; Z79.899 Other long term (current) drug therapy
CPT/HCPCS: 36000; 36415; 70450; 71045; 72131; 80053; 81001; 82077; 83605; 83690; 84145; 85025; 87040; 87086; 96374; 99285; J1100